=== PATIENT | female | born 1965 | race Caucasian/White ===

== ENCOUNTER 2023-04-10 09:55 | Inpatient (IN) | payer OTHER ==
[2023-04-10] MEDS ORDERED: KETOROLAC 15 MG/ML 1 ML VIAL IVP STA (10:30)
[2023-04-10] MEDS ORDERED: ONDANSETRON 4 MG/2 ML VIAL IVP STA (10:37)
[2023-04-10 11:04] LABS: Basophils % (A) 0 %; Eosinophils # (A) 0.1 k/uL (0-0.7); Eosinophils % (A) 1 %; HCT 45.2 % (34.0-46.0); HGB 15.4 gm/dL (11.4-16.0); Lymphocytes # (A) 1.9 k/uL (1.0-4.8); Lymphocytes % (A) 9 %; MCH 31.8 pg (25.0-35.0); MCHC 34.1 g/dL (31.0-37.0); MCV 93.4 fL (80.0-100.0); Mean Platelet Volume 7.1; Monocytes # (A) 1.2 k/uL (0-1.0); Monocytes % (A) 5 %; Neutrophils # (A) 18.6 k/uL (1.3-7.7); Neutrophils % (A) 85 %; Platelet Count 376 k/uL (150-450); RBC 4.83 m/uL (3.80-5.40); RDW 12.7 % (11.5-15.5); WBC 21.9 k/uL (3.8-10.6)
[2023-04-10 11:12] LABS: Appearance,Urine Cloudy (Clear); Bacteria,Urine Rare /hpf; Bilirubin,Urine Negative (Negative); Blood,Urine Moderate (Negative); Color,Urine Light Red; Glucose,Urine (UA) Trace (Negative); Ketones,Urine Trace (Negative); Leukocyte Esterase,Urine Small (Negative); Mucus,Urine Many /hpf; Nitrite,Urine Negative (Negative); PH, Urine 5.5 (5.0-8.0); Protein,Urine 2+ (Negative); RBC,Urine 5 /hpf (0-5); Specific Gravity,Urine 1.026 (1.001-1.035); Squamous Epithelial Cell,Urine 14 /hpf (0-4); Urobilinogen,Urine <2.0 mg/dL (<2.0); WBC,Urine 4 /hpf (0-5)
[2023-04-10 11:26] LABS: ALT 15 U/L (4-34); AST 21 U/L (14-36); African American GFR (CKD) >90 (>60 ml/min/1.73 sqM); Albumin 4.5 g/dL (3.5-5.0); Alkaline Phosphatase 104 U/L (38-126); Amylase 52 U/L (30-110); Anion Gap 10 mmol/L; Blood Urea Nitrogen 15 mg/dL (7-17); Carbon Dioxide 30 mmol/L (22-30); Chloride 98 mmol/L (98-107); Glucose 130 mg/dL (74-99); Lipase 88 U/L (23-300); Non-African American GFR(CKD) 79 (>60 ml/min/1.73 sqM); Potassium 3.9 mmol/L (3.5-5.1); Sodium 138 mmol/L (137-145); Total Protein 7.4 g/dL (6.3-8.2)
--- NOTE | 2023-04-10 11:26 | ED ---
Abdominal Pain HPI - General Chief Complaint: Abdominal Pain Stated Complaint: back pain Time Seen by Provider: 04/10/23 10:20 Source: patient Mode of arrival: ambulatory Limitations: no limitations - History of Present Illness Initial Comments: 57-year-old female presenting to the ED with a chief complaint of abdominal/back pain. Patient states for the past 2 days, has had right flank/right sided abdominal pain radiating to her chest. Pain is constant and waxing and waning in severity. States pain is sharp in nature. Associated nausea with 2 episodes of nonbloody nonbilious emesis this morning. Since onset, states pain is worsened in severity. States that she took one dose of Flexeril which helped improve the pain. Also notes lying flat helps improve the pain. No associated exacerbating factors. No changes in urination with no dysuria, hematuria, urgency, frequency. No changes in bowel movements. Denies chest pain or shortness of breath. No other complaints. - Related Data Home Medications Medication Instructions Recorded Confirmed Albuterol Sulfate [Albuterol 1 - 2 puff PO RT-Q6H PRN 04/10/23 04/10/23 Sulfate Hfa] Cetirizine HCl [Zyrtec] 10 mg PO DAILY 04/10/23 04/10/23 Cholecalciferol [Vitamin D3 (125 125 mcg PO DAILY 04/10/23 04/10/23 Mcg = 5000 Iu)] DULoxetine HCL [Cymbalta] 30 mg PO DAILY 04/10/23 04/10/23 DULoxetine HCL [Cymbalta] 60 mg PO DAILY 04/10/23 04/10/23 Ferrous Sulfate [Iron] 325 mg PO DAILY 04/10/23 04/10/23 Fluticasone Nasal [place] [Flonase 2 spray EA NOSTRIL DAILY 04/10/23 04/10/23 Nasal [place]] Levothyroxine Sodium [Synthroid] 25 mcg PO DAILY 04/10/23 04/10/23 Mometasone/Formoterol [Dulera 100 2 puff INHALATION RT-BID 04/10/23 04/10/23 Mcg-5 Mcg Inhaler] Allergies Allergy/AdvReac Type Severity Reaction Status Date / Time clarithromycin [From Biaxin] Allergy Rash/Hives Verified 04/10/23 13:48 Penicillins Allergy Rash/Hives Verified 04/10/23 13:48 Review of Systems ROS Statement: Those systems with pertinent positive or pertinent negative responses have been documented in the HPI. ROS Other: All systems not noted in ROS Statement are negative. Past Medical History Past Medical History: Asthma, Coronary Artery Disease (CAD), COPD Additional Past Medical History / Comment(s): Fibromyaglia History of Any Multi-Drug Resistant Organisms: None Reported Past Surgical History: Appendectomy, Hysterectomy Past Psychological History: No Psychological Hx Reported Smoking Status: Current every day smoker Past Alcohol Use History: None Reported Past Drug Use History: None Reported General Exam Limitations: no limitations General appearance: alert, in no apparent distress Respiratory exam: Present: normal lung sounds bilaterally Cardiovascular Exam: Present: regular rate GI/Abdominal exam: Present: soft (Tenderness to palpation of the upper abdomen diffusely however worse in the left upper quadrant with guarding. Bilateral CVA tenderness to percussion.) Extremities exam: Present: normal inspection Neurological exam: Present: alert, oriented X3 Skin exam: Present: warm, dry Course Vital Signs 04/10/23 10:09 Temperature 98.6 F Pulse Rate 106 H Respiratory 20 Rate Blood Pressure 172/97 O2 Sat by Pulse 99 Oximetry Medical Decision Making - Medical Decision Making Was pt. sent in by a medical professional or institution (, PA, PARTS PROFESSIONAL, urgent care, hospital, or care home...) When possible be specific @ -No Did you speak to anyone other than the patient for history (EMS, parent, family, police, friend...)? What history was obtained from this source @ -No Did you review nursing and triage notes (agree or disagree)? Why? @ -I reviewed and agree with nursing and triage notes Were old charts reviewed (outside hosp., previous admission, EMS record, old EKG, old radiological studies, urgent care reports/EKG's, care home records)? Report findings @ -No old charts were reviewed Differential Diagnosis (chest pain, altered mental status, abdominal pain women, abdominal pain men, vaginal bleeding, weakness, fever, dyspnea, syncope, headache, dizziness, GI bleed, back pain, seizure, CVA, palpatations, mental health, musculoskeletal)? @ -Differential Abdominal Pain Women: Appendicitis, Cholecystitis, diverticulosis, ischemic bowel, pancreatitis, hepatitis, UTI, gastroenteritis, AAA, incarcerated hernia, bowel obstruction, constipation, inflammatory bowel, hepatitis, peptic ulcer disease, splenic infarction, perforated viscus, vulvitis, ovarian torsion, PID, kidney stone, placenta abruption, this is not meant to be an all-inclusive list EKG interpreted by me (3pts min.). @ -As above X-rays interpreted by me (1pt min.). @ -None done CT interpreted by me (1pt min.). @ -CT abdomen and pelvis showed some eccentric calcification within the lumen of the fusiform prominence of abdominal aorta with prominence measuring 3 cm suggesting underlying dissection. CTA of the thorax/abdomen/pelvis showed ascending thoracic aortic aneurysm measuring 4 cm. Descending thoracic aorta and abdominal aorta with apparent thrombus along the wall without obstruction. No acute dissection. U/S interpreted by me (1pt. min.). @ -None done What testing was considered but not performed or refused? (CT, X-rays, U/S, labs)? Why? @ -None What meds were considered but not given or refused? Why? @ -None Did you discuss the management of the patient with other professionals (professionals i.e. , PA, PARTS PROFESSIONAL, lab, RT, psych nurse, social worker delinquency prevention, business lawyer, teacher, learning and development officer, caseworker protective services)? Give summary @ -Case discussed with radiology who noted he findings above. The CT abdomen/pelvis and therefore recommended CTA. Us findings of descending thoracic aorta with apparent thrombus along the wall without obstruction with Dr. Walker of vascular who related that these findings are likely chronic in nature. In regards to ascending aorta aneurysm advised at this time vascular team here unable to assist due to surgeons performing it being currently out of town and Dr. Walker states that he does not repair these himself. Florentino FELIPE of cardiothoracic contacted and related findings. Advised by cardiothoracic that these findings appear chronic in nature. Advised repeat CT in 3 months. Was smoking cessation discussed for >3mins.? @ -No Was critical care preformed (if so, how long)? @ -No Were there social determinants of health that impacted care today? How? (Homelessness, low income, unemployed, alcoholism, drug addiction, transportation, low edu. Level, literacy, decrease access to med. care, senior care, rehab)? @ -No Was there de-escalation of care discussed even if they declined (Discuss DNR or withdrawal of care, Hospice)? DNR status @ -No What co-morbidities impacted this encounter? (DM, HTN, Smoking, COPD, CAD, Cancer, CVA, ARF, Chemo, Hep., AIDS, mental health diagnosis, sleep apnea, morbid obesity)? @ -None Was patient admitted / discharged? Hospital course, mention meds given and route, prescriptions, significant lab abnormalities, going to OR and other pertinent info. @ -Admission. Imaging findings significant for abdominal aneurysm and thoracic aneurysm. Upon consultation with vascular and cardiothoracic, both advised that these findings appear chronic in nature at this time are nonsurgical. Patient is still having back/abdominal pain radiating to the chest. EKG here shows a normal sinus rhythm without acute ST-T wave changes and initial troponin unremarkable. Patient will be admitted to observation with consult to cardiology. Undiagnosed new problem with uncertain prognosis? @ -No Drug Therapy requiring intensive monitoring for toxicity (Heparin, Nitro, Insulin, Cardizem)? @ -No Were any procedures done? @ -No Diagnosis/symptom? @ -Abdominal aneurysm, thoracic aneurysm, abdominal/chest pain. Acute, or Chronic, or Acute on Chronic? @ -Chronic, chronic, acute Uncomplicated (without systemic symptoms) or Complicated (systemic symptoms)? @ -Uncomplicated Side effects of treatment? @ -No Exacerbation, Progression, or Severe Exacerbation? @ -No Poses a threat to life or bodily function? How? (Chest pain, [place], [place], pneumonia, PE, COPD, DKA, ARF, appy, cholecystitis, CVA, Diverticulitis, Homicidal, Suicidal, threat to staff... and all critical care pts) @ -Yes, Chest pain - Lab Data Result diagrams: 04/10/23 10:50 04/10/23 10:50 Lab Results 04/10/23 04/10/23 04/10/23 Range/Units 10:50 10:50 10:50 WBC 21.9 H (3.8-10.6) k/uL RBC 4.83 (3.80-5.40) m/uL Hgb 15.4 (11.4-16.0) gm/dL Hct 45.2 (34.0-46.0) % MCV 93.4 (80.0-100.0) fL MCH 31.8 (25.0-35.0) pg MCHC 34.1 (31.0-37.0) g/dL RDW 12.7 (11.5-15.5) % Plt Count 376 (150-450) k/uL MPV 7.1 Neutrophils % 85 % Lymphocytes % 9 % Monocytes % 5 % Eosinophils % 1 % Basophils % 0 % Neutrophils # 18.6 H (1.3-7.7) k/uL Lymphocytes # 1.9 (1.0-4.8) k/uL Monocytes # 1.2 H (0-1.0) k/uL Eosinophils # 0.1 (0-0.7) k/uL Basophils # 0.0 (0-0.2) k/uL Sodium 138 (137-145) mmol/L Potassium 3.9 (3.5-5.1) mmol/L Chloride 98 (98-107) mmol/L Carbon Dioxide 30 (22-30) mmol/L Anion Gap 10 mmol/L BUN 15 (7-17) mg/dL Creatinine 0.82 (0.52-1.04) mg/dL Est GFR (CKD-EPI)AfAm >90 (>60 ml/min/1.73 sqM) Est GFR (CKD-EPI)NonAf 79 (>60 ml/min/1.73 sqM) Glucose 130 H (74-99) mg/dL Calcium 10.0 (8.4-10.2) mg/dL Total Bilirubin 1.0 (0.2-1.3) mg/dL AST 21 (14-36) U/L ALT 15 (4-34) U/L Alkaline Phosphatase 104 (38-126) U/L Troponin I (0.000-0.034) ng/mL Total Protein 7.4 (6.3-8.2) g/dL Albumin 4.5 (3.5-5.0) g/dL Amylase 52 (30-110) U/L Lipase 88 (23-300) U/L Urine Color Light Red Urine Appearance Cloudy H (Clear) Urine pH 5.5 (5.0-8.0) Ur Specific [place] 1.026 (1.001-1.035) Urine Protein 2+ H (Negative) Urine Glucose (UA) Trace H (Negative) Urine Ketones Trace H (Negative) Urine Blood Moderate H (Negative) Urine Nitrite Negative (Negative) Urine Bilirubin Negative (Negative) Urine Urobilinogen <2.0 (<2.0) mg/dL Ur Leukocyte Esterase Small H (Negative) Urine RBC 5 (0-5) /hpf Urine WBC 4 (0-5) /hpf Ur Squamous Epith Cells 14 H (0-4) /hpf Urine Bacteria Rare H (None) /hpf Urine Mucus Many H (None) /hpf 04/10/23 Range/Units 10:50 WBC (3.8-10.6) k/uL RBC (3.80-5.40) m/uL Hgb (11.4-16.0) gm/dL Hct (34.0-46.0) % MCV (80.0-100.0) fL MCH (25.0-35.0) pg MCHC (31.0-37.0) g/dL RDW (11.5-15.5) % Plt Count (150-450) k/uL MPV Neutrophils % % Lymphocytes % % Monocytes % % Eosinophils % % Basophils % % Neutrophils # (1.3-7.7) k/uL Lymphocytes # (1.0-4.8) k/uL Monocytes # (0-1.0) k/uL Eosinophils # (0-0.7) k/uL Basophils # (0-0.2) k/uL Sodium (137-145) mmol/L Potassium (3.5-5.1) mmol/L Chloride (98-107) mmol/L Carbon Dioxide (22-30) mmol/L Anion Gap mmol/L BUN (7-17) mg/dL Creatinine (0.52-1.04) mg/dL Est GFR (CKD-EPI)AfAm (>60 ml/min/1.73 sqM) Est GFR (CKD-EPI)NonAf (>60 ml/min/1.73 sqM) Glucose (74-99) mg/dL Calcium (8.4-10.2) mg/dL Total Bilirubin (0.2-1.3) mg/dL AST (14-36) U/L ALT (4-34) U/L Alkaline Phosphatase (38-126) U/L Troponin I <0.012 (0.000-0.034) ng/mL Total Protein (6.3-8.2) g/dL Albumin (3.5-5.0) g/dL Amylase (30-110) U/L Lipase (23-300) U/L Urine Color Urine Appearance (Clear) Urine pH (5.0-8.0) Ur Specific [place] (1.001-1.035) Urine Protein (Negative) Urine Glucose (UA) (Negative) Urine Ketones (Negative) Urine Blood (Negative) Urine Nitrite (Negative) Urine Bilirubin (Negative) Urine Urobilinogen (<2.0) mg/dL Ur Leukocyte Esterase (Negative) Urine RBC (0-5) /hpf Urine WBC (0-5) /hpf Ur Squamous Epith Cells (0-4) /hpf Urine Bacteria (None) /hpf Urine Mucus (None) /hpf - EKG Data EKG Comments: EKG shows a sinus rhythm at [address] or T-wave changes. NH 126, QRS 90, QT/QTc 351/402. Disposition Clinical Impression: Abdominal aortic aneurysm, Thoracic aortic aneurysm, Abdominal pain, Chest pain Disposition: ADMITTED IP TO THIS [facility] Condition: Good Referrals: None,Stated [Primary Care Provider] - 1-2 days Decision Time: 17:42
--- NOTE | 2023-04-10 12:42 | CT ---
EXAMINATION TYPE: CT abdomen pelvis wo con DATE OF EXAM: 04/10/2023 COMPARISON: None INDICATION: Diffuse abdominal pain and Rt flank pain DLP: 416.3 mGycm, Automated exposure control for dose reduction was used. CONTRAST: 0 mL of Isovue 300. Study performed without Oral Contrast TECHNIQUE: Axial images were obtained from above the diaphragm to the pubic rami in the axial plane a t 5 mm thick sections. Reconstructed images are reviewed on the computer in the coronal plane. FINDINGS: Limited CT sections are obtained the lung bases. The lung bases are clear. CT ABDOMEN: Liver: Normal Spleen: Normal Pancreas: Normal Adrenal glands: The adrenal glands are normal. Gallbladder: Normal Kidneys: No masses are evident. No hydronephrosis is present. No cysts are present. Delayed images were obtained through the kidneys, which remain unremarkable. Aorta: Vascular calcification is within the aorta. Mid abdominal aorta measures 3.0 cm. Some calcifi cations near the midline suggesting underlying dissection at this level. Report was called as discuss ed the emergency room physician by Dr. Jackson from the time of interpretation. Inferior vena cava: Normal. CT PELVIS: Loops of bowel within the abdomen and pelvis are normal. This study is without oral contrast limi ting bowel evaluation. Appendix: Not identified. No dilated tubular structure or inflammatory changes are evident. Urinary bladder: Normal. Genitourinary structures: Osseous structures: No suspicious lytic or sclerotic lesions. Facet changes are normal. IMPRESSIONS: 1. There is some eccentric calcification within the lumen of the fusiform prominence of abdominal ao rta suggesting underlying dissection. Fusiform prominence measures 3.0 cm in the mid abdominal aorta. Correlate with the patient's symptoms. Case discussed with the emergency room. 2. No renal or ureteral stones evident.
[2023-04-10] MEDS ORDERED: MORPHINE SULFATE 4 MG/ML SYRINGE IVP STA (13:13)
--- NOTE | 2023-04-10 15:12 | CT ---
EXAMINATION TYPE: CT angio thor/abd pel aorta DATE OF EXAM: 04/10/2023 COMPARISON: None HISTORY: Back pain CT DLP: 983.1 mGycm, Automated exposure control for dose reduction was used. CONTRAST: Performed injected with 100 ml mL of Isovue 370. TECHNIQUE: Axial images were obtained at 5 mm thick sections. Reconstructed images are reviewed on [employer] computer in the coronal plane. FINDINGS: Portion of the thyroid visualized is normal. Emphysematous changes are present bilaterally. No enlarged mediastinal or hilar adenopathy is evident. The ascending aorta diameter at the level o f the main pulmonary artery is 4.0 cm. The main pulmonary artery diameter at the bifurcation is 2.[address] abdomen: Attention is paid to the aorta. Celiac axis and superior mesenteric artery appear normal. The renal arteries appear normal. There is some calcification near the origins. The flow lumen is patent. The calcification in the mid abdominal aorta is shifted towards the center. An acute dissection is not identified. This outer area could be related to thrombus or thrombosed di ssection. This terminates above the bifurcation. Common iliac internal and external iliac vessels are patent. Common femoral arteries are patent. Abdomen was previously evaluated and CT abdomen study. No suspicious interval change is evident. IMPRESSIONS: 1. Ascending thoracic aortic aneurysm at 4.0 cm. 2. Descending thoracic aorta and abdominal aorta with apparent thrombus along the wall without obstru ction. No acute dissection identified. Mid abdominal dissection, if present, is thrombosed. 3. Report was called and case discussed with the emergency room at the time of interpretation.
[2023-04-10] MEDS ORDERED: ACETAMINOPHEN TAB 325 MG TAB PO PRN (17:42)
[2023-04-10] MEDS ORDERED: NALOXONE 0.4 MG/ML 1 ML VIAL IV PRN (17:42)
[2023-04-10] MEDS ORDERED: ONDANSETRON 4 MG/2 ML VIAL IVP PRN (17:42)
--- NOTE | 2023-04-10 18:28 | P.GSCN ---
History of Present Illness Consult date: 04/10/23 Reason for Consult: Abdominal pain, incidental finding on CT angiogram thoracic/abdominal aorta, ascending aortic aneurysm at 4.0 cm, descending thoracic aorta and abdominal aorta with apparent thrombus along the wall without obstruction and no acute dissection identified. 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 She has a past medical history significant for a bicuspid aortic valve, osteoporosis, chronic constipation, depression, anxiety, arthritis, asthma, COPD, fibromyalgia, hypothyroid, hypertension, hyperlipidemia, hyperglycemia, migraine headaches, chronic ongoing tobacco dependence and daily marijuana use smoking about 6-7 joints per day. She presented to the emergency department here at [facility] today with complaints of right sided flank and abdominal pain radiating to her chest which was constant in nature and waxing and waning in severity. The patient also reports that her pain was associated with nausea and 2 episodes of vomiting which she denies any hematemesis. The patient reports that the pain started this morning but has been present off and on for 2 days and has worsened in severity. She reports due to her history of severe constipation she presented to the emergency department. She denies any recent fever, shortness of breath, lightheadedness, visual disturbances, headache, burning urination or changes in urine habits, diarrhea, palpitations, presyncope or syncope. Initial laboratory results showed a WBC count of 21.9, hemoglobin 15.4, hematocrit 45.2, platelets 376, sodium 138, potassium 3.9, chloride 98, CO2 30, BUN 15, creatinine 0.82, glucose 130, AST 21, ALT 15, troponin less than 0.012, amylase 52 and lipase 88. Her urinalysis did show cloudy in appearance, 2+ protein trace glucose, ketones trace, moderate blood, small leukocyte Estrace, and rare rare bacteria. Initial vital signs showed a temperature of 98.6F, heart rate 106, BP 172/97 with a map of 122 and oxygen saturation is 99% on room air. Her current blood pressure is showing 141/86 with a map of 104 heart rate 69 and oxygen saturation is 97% on room air. Due to the patient's presenting symptoms with complaints of abdominal discomfort a computed tomography scan of her abdomen and pelvis without contrast was completed and showed some eccentric calcification within the lumen of the fusiform prominence of abdominal aorta suggesting underlying dissection, fusiform prominence measuring 3.0 cm in the mid abdominal aorta and no renal or ureteral stones to be evident. Due to the findings on the computed tomography scan of the abdomen for further evaluation a CT angiogram thoracic/abdominal and pelvis aorta was completed which demonstrated an ascending thoracic aorta aneurysm at 4.0 cm, descending thoracic aorta and abdominal aorta with apparent thrombus along the wall without obstruction, no acute dissection identified, mid abdominal dissection, if present, is thrombosed, per the computed tomography scan report. Initial EKG showed normal sinus rhythm with a heart rate of 93 BPM. Subsequently due to the findings on the CT angiogram thoracic/abdominal/pelvic aorta a consult was placed to Dr. Bennie Hou from cardiothoracic surgery for further evaluation and treatment recommendations. Review of Systems A 14 point review of systems was negative except as mentioned in the HPI. Past Medical History Past Medical History: Asthma, Coronary Artery Disease (CAD), COPD, Fibromyalgia, Hyperlipidemia, Hypertension, Thyroid Disorder Additional Past Medical History / Comment(s): Osteoporosis, Fibromyaglia, according to the patient she has been diagnosed with a bicuspid aortic valve History of Any Multi-Drug Resistant Organisms: None Reported Past Surgical History: Appendectomy, Hysterectomy Additional Past Surgical History / Comment(s): Cyst removed recently from her back and neck Past Anesthesia/Blood Transfusion Reactions: No Reported Reaction Past Psychological History: Anxiety, Depression Smoking Status: Current every day smoker Past Alcohol Use History: None Reported Past Drug Use History: Marijuana (Daily marijuana use smokes around 6-7 joints per day) - Past Family History Mother Family Medical History: Cancer, CVA/TIA Father Family Medical History: Hypertension, Myocardial Infarction ([place]) Additional Family Medical History / Comment(s): at age 46 from myocardial infarction Medications and Allergies Home Medications Medication Instructions Recorded Confirmed Type Albuterol Sulfate [Albuterol 1 - 2 puff PO RT-Q6H PRN 04/10/23 04/10/23 History Sulfate Hfa] Cetirizine HCl [Zyrtec] 10 mg PO DAILY 04/10/23 04/10/23 History Cholecalciferol [Vitamin D3 (125 125 mcg PO DAILY 04/10/23 04/10/23 History Mcg = 5000 Iu)] DULoxetine HCL [Cymbalta] 30 mg PO DAILY 04/10/23 04/10/23 History DULoxetine HCL [Cymbalta] 60 mg PO DAILY 04/10/23 04/10/23 History Ferrous Sulfate [Iron] 325 mg PO DAILY 04/10/23 04/10/23 History Fluticasone Nasal [place] [Flonase 2 spray EA NOSTRIL DAILY 04/10/23 04/10/23 History Nasal [place]] Levothyroxine Sodium [Synthroid] 25 mcg PO DAILY 04/10/23 04/10/23 History Mometasone/Formoterol [Dulera 100 2 puff INHALATION RT-BID 04/10/23 04/10/23 History Mcg-5 Mcg Inhaler] Allergies Allergy/AdvReac Type Severity Reaction Status Date / Time clarithromycin [From Biaxin] Allergy Rash/Hives Verified 04/10/23 13:48 Penicillins Allergy Rash/Hives Verified 04/10/23 13:48 Surgical - Exam Vital Signs Temp Pulse Resp BP Pulse Ox 98.6 F 106 H 20 172/97 99 04/10/23 10:09 04/10/23 10:09 04/10/23 10:09 04/10/23 10:09 04/10/23 10:09 - General well developed, well nourished, no distress, moderate pain (To abdomen and right flank), chronically ill, obese - Eyes PERRL, normal ocular movement, no pale, no icteric - ENT normal pinna, normal nares, normal mucosa, no hearing loss, no congestion, poor residential - Neck Neck is supple, no lymphadenopathy. no masses, trachea midline, no venous distension carotid bruit: left - Respiratory Lungs sounds essentially clear throughout. Respirations are symmetrical and nonlabored. Oxygen saturation is 97% on room air. - Cardiovascular Regular rhythm and rate. S1 and S2 present, negative for S3, gallop or murmur. No peripheral edema. - Abdomen Abdomen is soft, nondistended, some tenderness with palpation to her right lower quadrant abdomen and right flank. Bowel sounds present in all 4 abdominal quadrants. No guarding or rigidity. - Genitourinary Deferred - Rectum Deferred - Integumentary Skin is warm and dry. No clubbing or cyanosis is present. no rash, no growths, no abnormal pigmentation - Neurologic No focal deficits. - Musculoskeletal Moves all 4 extremities with equal strength bilaterally. - Psychiatric oriented to time, oriented to person, oriented to place, speech is normal, memory intact Results - Labs 04/10/23 10:50 04/10/23 10:50 Abnormal Lab Results - Last 24 Hours (Table) 04/10/23 04/10/23 04/10/23 Range/Units 10:50 10:50 10:50 WBC 21.9 H (3.8-10.6) k/uL Neutrophils # 18.6 H (1.3-7.7) k/uL Monocytes # 1.2 H (0-1.0) k/uL Glucose 130 H (74-99) mg/dL Urine Appearance Cloudy H (Clear) Urine Protein 2+ H (Negative) Urine Glucose (UA) Trace H (Negative) Urine Ketones Trace H (Negative) Urine Blood Moderate H (Negative) Ur Leukocyte Esterase Small H (Negative) Ur Squamous Epith Cells 14 H (0-4) /hpf Urine Bacteria Rare H (None) /hpf Urine Mucus Many H (None) /hpf Diabetes panel 04/10/23 Range/Units 10:50 Sodium 138 (137-145) mmol/L Potassium 3.9 (3.5-5.1) mmol/L Chloride 98 (98-107) mmol/L Carbon Dioxide 30 (22-30) mmol/L BUN 15 (7-17) mg/dL Creatinine 0.82 (0.52-1.04) mg/dL Glucose 130 H (74-99) mg/dL Calcium 10.0 (8.4-10.2) mg/dL AST 21 (14-36) U/L ALT 15 (4-34) U/L Alkaline Phosphatase 104 (38-126) U/L Total Protein 7.4 (6.3-8.2) g/dL Albumin 4.5 (3.5-5.0) g/dL Calcium panel 04/10/23 Range/Units 10:50 Calcium 10.0 (8.4-10.2) mg/dL Albumin 4.5 (3.5-5.0) g/dL Pituitary panel 04/10/23 Range/Units 10:50 Sodium 138 (137-145) mmol/L Potassium 3.9 (3.5-5.1) mmol/L Chloride 98 (98-107) mmol/L Carbon Dioxide 30 (22-30) mmol/L BUN 15 (7-17) mg/dL Creatinine 0.82 (0.52-1.04) mg/dL Glucose 130 H (74-99) mg/dL Calcium 10.0 (8.4-10.2) mg/dL Adrenal panel 04/10/23 Range/Units 10:50 Sodium 138 (137-145) mmol/L Potassium 3.9 (3.5-5.1) mmol/L Chloride 98 (98-107) mmol/L Carbon Dioxide 30 (22-30) mmol/L BUN 15 (7-17) mg/dL Creatinine 0.82 (0.52-1.04) mg/dL Glucose 130 H (74-99) mg/dL Calcium 10.0 (8.4-10.2) mg/dL Total Bilirubin 1.0 (0.2-1.3) mg/dL AST 21 (14-36) U/L ALT 15 (4-34) U/L Alkaline Phosphatase 104 (38-126) U/L Total Protein 7.4 (6.3-8.2) g/dL Albumin 4.5 (3.5-5.0) g/dL - Imaging CT scan - chest: report reviewed, image reviewed (Reviewed by Dr. Bennie Hou.) Assessment and Plan Assessment: Thoracic aortic aneurysm on CT scan of the chest measuring 4.0 cm, CT angio of the thoracic/abdomen and pelvis showed descending thoracic aorta and abdominal aorta with apparent thrombus along the wall without obstruction, no acute dissection History of bicuspid aortic valve History of hypertension History of hyperlipidemia Hypothyroidism Fibromyalgia Depression/anxiety COPD History of asthma History of bronchitis History of constipation Osteoporosis Chronic ongoing tobacco dependence Daily marijuana use smokes 6-7 joints per day Family history of early onset coronary artery disease with her dad passing away in his 40s from a myocardial infarction Plan: The patient was seen and examined at her bedside in the emergency department, with her son present at her bedside. Her chart and diagnostics were reviewed. Her films were reviewed by Dr. Bennie Hou from cardiothoracic surgery, her case was discussed in detail with Dr. Hou. No surgical intervention is warranted at this time, recommend strict blood pressure control and repeat CTA of the aorta in 3 months. Also discussed the importance of smoking cessation with the patient. Further recommendations on her abdominal aorta per vascular surgery. The patient reports she will follow-up with her family doctor in [place] and passed on the recommendations to her physician. We will start the patient on metoprolol tartrate 25 mg by mouth twice a day. Medical management and other comorbidities per primary care service. We will continue to follow the patient on an as-needed basis, feel free to call for further questions. Thank you for this consult. I have personally seen and examined the patient, performed the documentation and the assessment and plan as written. 30 minutes spent on the visit . Florentino WU
[2023-04-10] MEDS: SODIUM CHLORIDE 0.9% 1,000 ML IV SCH (18:36)
[2023-04-10] MEDS: HYDROmorphone 0.5 MG/0.5 ML SYRINGE IVP PRN (20:27)
[2023-04-10] MEDS: METOPROLOL TARTRATE 25 MG TAB PO SCH (20:27)
[2023-04-11] MEDS ORDERED: ALBUTEROL NEBULIZED 2.5 MG/3 ML INHALATION PRN (00:28)
--- NOTE | 2023-04-11 00:38 | P.HPIM ---
History of Present Illness H&P Date: 04/10/23 Chief Complaint: right flank pain 57 year old female with COPD she is coming in for sudden onset right flank pain , described as intense sharp right flank pain , radiating to the epigastric region and lower chest. with associated episode of vomitingX2 non bloody non bilious , no fever, no chills, no SOB, no changes in bowel habits, no GI bleeding, denies any trauma , falls, or bruising. denies any urinary changes. she describes pain as severe 8/10 and sharp in nature. while in the ED , further testing revealed concern regarding aortic dissection admits to tobacco smoking and marijuana multiple times a day , dneies any heavy alcohol review of systems Pertinent positives as noted in HPI. All other systems were reviewed and are negative on exam Constitutional: No acute distress, conversant, pleasant Eyes: Anicteric sclerae, moist conjunctiva, Pupils equal round reactive to light ENMT: NC/AT Oropharynx clear, no erythema, or exudates Neck: Supple, no masses, or JVD No carotid bruits No thyromegaly Lungs: Clear to auscultation Clear to percussion Normal respiratory effort, no accessory muscle use Cardiovascular: Heart regular in rate and rhythm, No murmurs, gallops, or rubs No peripheral edema Abdominal: Soft Nontender, no guarding, rebound or rigidity Abdomen moving with respiration Normoactive bowel sounds No hepatomegaly, No splenomegaly No palpable mass No abdominal wall hernia noted Skin: Normal temperature, tone, texture, turgor No induration No subcutaneous nodules No rash, lesions No ulcers Extremities: No digital cyanosis No clubbing Pedal pulses intact and symmetrical Radial pulses intact and symmetrical No calf tenderness Psychiatric: Alert and oriented to person, place and time Appropriate affect fair judgement Neuro Muscles Strength 5/5 in all 4 extremities Sensation to light touch grossly present throughout Cranial nerves II-XII grossly intact Lymphatics: no palpable cervical or supraclavicular lymph nodes Past Medical History Past Medical History: Asthma, Coronary Artery Disease (CAD), COPD, Fibromyalgia, Hyperlipidemia, Hypertension, Thyroid Disorder Additional Past Medical History / Comment(s): Osteoporosis, Fibromyaglia, according to the patient she has been diagnosed with a bicuspid aortic valve, History of Any Multi-Drug Resistant Organisms: None Reported Past Surgical History: Appendectomy, Hysterectomy Additional Past Surgical History / Comment(s): Cyst removed recently from her back and neck Past Anesthesia/Blood Transfusion Reactions: No Reported Reaction Past Psychological History: Anxiety, Depression Smoking Status: Current every day smoker Past Alcohol Use History: None Reported Past Drug Use History: Marijuana - Past Family History Mother Family Medical History: Cancer, CVA/TIA Father Family Medical History: Hypertension, Myocardial Infarction ([place]) Additional Family Medical History / Comment(s): at age 46 from myocardial infarction Medications and Allergies Home Medications Medication Instructions Recorded Confirmed Type Albuterol Sulfate [Albuterol 1 - 2 puff PO RT-Q6H PRN 04/10/23 04/10/23 History Sulfate Hfa] Cetirizine HCl [Zyrtec] 10 mg PO DAILY 04/10/23 04/10/23 History Cholecalciferol [Vitamin D3 (125 125 mcg PO DAILY 04/10/23 04/10/23 History Mcg = 5000 Iu)] DULoxetine HCL [Cymbalta] 30 mg PO DAILY 04/10/23 04/10/23 History DULoxetine HCL [Cymbalta] 60 mg PO DAILY 04/10/23 04/10/23 History Ferrous Sulfate [Iron] 325 mg PO DAILY 04/10/23 04/10/23 History Fluticasone Nasal [place] [Flonase 2 spray EA NOSTRIL DAILY 04/10/23 04/10/23 History Nasal [place]] Levothyroxine Sodium [Synthroid] 25 mcg PO DAILY 04/10/23 04/10/23 History Mometasone/Formoterol [Dulera 100 2 puff INHALATION RT-BID 04/10/23 04/10/23 History Mcg-5 Mcg Inhaler] Allergies Allergy/AdvReac Type Severity Reaction Status Date / Time clarithromycin [From Biaxin] Allergy Rash/Hives Verified 04/10/23 13:48 Penicillins Allergy Rash/Hives Verified 04/10/23 13:48 Physical Exam Vitals: Vital Signs Temp Pulse Pulse Resp BP BP Pulse Ox 04/10/23 22:04 98.7 F 99 15 135/70 94 L 04/10/23 18:00 98.7 F 69 16 141/86 97 04/10/23 10:09 98.6 F 106 H 20 172/97 99 Intake and Output 04/10/23 04/10/23 04/11/23 14:59 22:59 06:59 Other: # Voids 0 Weight 74.843 kg 74.843 kg Results CBC & Chem 7: 04/10/23 10:50 04/10/23 10:50 Labs: Abnormal Lab Results - Last 24 Hours (Table) 04/10/23 04/10/23 04/10/23 Range/Units 10:50 10:50 10:50 WBC 21.9 H (3.8-10.6) k/uL Neutrophils # 18.6 H (1.3-7.7) k/uL Monocytes # 1.2 H (0-1.0) k/uL Glucose 130 H (74-99) mg/dL Urine Appearance Cloudy H (Clear) Urine Protein 2+ H (Negative) Urine Glucose (UA) Trace H (Negative) Urine Ketones Trace H (Negative) Urine Blood Moderate H (Negative) Ur Leukocyte Esterase Small H (Negative) Ur Squamous Epith Cells 14 H (0-4) /hpf Urine Bacteria Rare H (None) /hpf Urine Mucus Many H (None) /hpf Assessment and Plan Assessment: 57 year old female with copd and heavy smoking , coming in for right flank pain , imaging revealed ascending thoracic aortic aneurysm, I discussed the case with ED doc and I accepted the admission for cardiology and cardiothoracic evaluation Ascending Thoracic aortic aneurysm at 4 cm CTA showing , Descending thoracic aorta and abd aorta with apparent thrombus along the wall without obstruction , no acute dissection , possibly thrombosed mid abdominal dissection Cardiothoracic evaluation , no plans for immediate intervention , suggesting OP follow up with repeat imaging in 3 months pain control with opiates cardiology evaluation COPD compensated resume inhalers hypertension on metoprolol 25 mg po bid hypothyroid on levothyroxine blood work showing negative trops imaging no evidence of kidney stones, or liver pathology WBC 21.9 no identified focus of infection BUN 15, cr 0.8 Miranda 138, K 3.9 unremarkable UA sample was not a clean catch with high seq cell epith full code DVT PPX heparin sc tid
[2023-04-11] MEDS: HYDROmorphone 0.5 MG/0.5 ML SYRINGE IVP PRN ×2 (02:31→11:30)
[2023-04-11] MEDS: LEVOTHYROXINE 25 MCG TAB PO SCH (05:16)
[2023-04-11] MEDS: SODIUM CHLORIDE 0.9% 1,000 ML IV SCH ×2 (05:17→20:25)
[2023-04-11] MEDS: HYDROmorphone 1 MG/ML 1 ML SYRINGE IVP PRN (05:20)
[2023-04-11] MEDS: DULoxetine HCL 30 MG CAPSULE.DR PO SCH (08:05)
[2023-04-11] MEDS: LORATADINE 10 MG TAB PO SCH (08:05)
[2023-04-11] MEDS: DULoxetine HCL 60 MG CAPSULE.DR PO SCH (08:05)
[2023-04-11] MEDS ORDERED: PANTOPRAZOLE 40 MG TABLET PO SCH (09:00)
[2023-04-11] MEDS: SYMBICORT 80-4.5 MCG INHALER INHALATION SCH ×2 (09:17→20:21)
[2023-04-11] MEDS: METOPROLOL TARTRATE 25 MG TAB PO SCH ×2 (09:23→20:26)
[2023-04-11] MEDS: ASPIRIN 81 MG PO SCH (09:23)
--- NOTE | 2023-04-11 10:46 | P.CRDCN ---
History of Present Illness Consult date: 04/11/23 Reason for Consult (text): Abdominal pain and chest pain History of present illness: History of present illness: This is a 57-year-old female with no previous cardiac history. She does have a past medical history of hypothyroidism, active tobacco use and dependence. Patient lives in [place] and is visiting her son. We have been asked to evaluate the patient for abdominal pain and chest pain. She presented to the emergency center due to abdominal pain and vomiting. There was concern for aortic aneurysm and patient has been seen by cardiothoracic surgery with recommendations for repeat CTA in 3 months, blood pressure control smoking ce ssation and started patient on Lopressor. Patient continues to have significant abdominal pain with tenderness. EKG sinus rhythm with no acute ST changes CT angiogram of the aorta revealed a ascending thoracic aortic aneurysm of 4 cm. Descending thoracic aorta and abdominal aorta with apparent thrombus along the wall without obstruction. No acute dissection. Mild abdominal dissection if present is thrombosed. WBC 21.9, hemoglobin 15.4. Electrolytes and renal function normal. Blood sugar 130. Troponin negative 3. Liver function tests are normal. Home cardiac medications: Patient is on levothyroxine 25 g daily Review Of Systems: At the time of my evaluation: Constitutional: No fever, no chills. No weakness, fatigue or lethargy. EENT: No headache. No dizziness. Lungs: No shortness of breath, cough, no sputum production. No wheezing. Cardiovascular: No chest pain, no lower extremity edema. No palpitations. No paroxysmal nocturnal dyspnea. No orthopnea. No lightheadedness or dizziness. No syncopal episodes. Abdominal: + abdominal pain. No nausea, vomiting. No diarrhea. No constipation. No bloody or tarry stools. Musculoskeletal: No myalgias. No muscle weakness, no frequent falls. Neurologic: No aphasia. No facial droop. No change in mentation. Physical examination: Gen: This is a a 57 year old female resting in bed appears to be in no acute distress. VS: reviewed. Blood pressure 117/68, heart rate 85, afebrile, pulse ox 95% on room air HEENT: Head is atraumatic, normocephalic. Pupils equal, round. Sclerae is anicteric. NECK: Supple. No JVD. . LUNGS: Clear to auscultation. No wheezes or rhonchi. No intercostal retractions. HEART: Regular rate and rhythm. No murmur. ABDOMEN: Soft significant tenderness to the epigastric area EXTREMITIES: No pedal edema. No calf tenderness. NEUROLOGICAL: Patient is awake, alert and oriented x3. Assessment: Atypical chest pain, acute coronary syndrome ruled out Hypertension Abdominal pain possibly related to GERD Ascending thoracic aortic aneurysm, incidental finding Thrombus in the abdominal aorta, incidental finding Hypothyroidism Active tobacco use and dependence Plan: Continue Lopressor Add atorvastatin 40 mg daily, aspirin 81 mg daily and omeprazole Obtain lipid panel Obtain 2-D echocardiogram and Doppler study to assess cardiac structure and function If echocardiogram is unremarkable, patient is cleared from cardiology for discharge Thank you kindly for this consultation. Nurse practitioner note has been reviewed, I agree with documented findings and plan of care. Patient was seen and examined. Past Medical History Past Medical History: Asthma, Coronary Artery Disease (CAD), COPD, Fibromyalgia, Hyperlipidemia, Hypertension, Thyroid Disorder Additional Past Medical History / Comment(s): Osteoporosis, Fibromyaglia, according to the patient she has been diagnosed with a bicuspid aortic valve, History of Any Multi-Drug Resistant Organisms: None Reported Past Surgical History: Appendectomy, Hysterectomy Additional Past Surgical History / Comment(s): Cyst removed recently from her back and neck Past Anesthesia/Blood Transfusion Reactions: No Reported Reaction Past Psychological History: Anxiety, Depression Smoking Status: Current every day smoker Past Alcohol Use History: None Reported Past Drug Use History: Marijuana - Past Family History Mother Family Medical History: Cancer, CVA/TIA Father Family Medical History: Hypertension, Myocardial Infarction ([place]) Additional Family Medical History / Comment(s): at age 46 from myocardial infarction Medications and Allergies Home Medications Medication Instructions Recorded Confirmed Type Albuterol Sulfate [Albuterol 1 - 2 puff PO RT-Q6H PRN 04/10/23 04/10/23 History Sulfate Hfa] Cetirizine HCl [Zyrtec] 10 mg PO DAILY 04/10/23 04/10/23 History Cholecalciferol [Vitamin D3 (125 125 mcg PO DAILY 04/10/23 04/10/23 History Mcg = 5000 Iu)] DULoxetine HCL [Cymbalta] 30 mg PO DAILY 04/10/23 04/10/23 History DULoxetine HCL [Cymbalta] 60 mg PO DAILY 04/10/23 04/10/23 History Ferrous Sulfate [Iron] 325 mg PO DAILY 04/10/23 04/10/23 History Fluticasone Nasal [place] [Flonase 2 spray EA NOSTRIL DAILY 04/10/23 04/10/23 History Nasal [place]] Levothyroxine Sodium [Synthroid] 25 mcg PO DAILY 04/10/23 04/10/23 History Mometasone/Formoterol [Dulera 100 2 puff INHALATION RT-BID 04/10/23 04/10/23 History Mcg-5 Mcg Inhaler] Allergies Allergy/AdvReac Type Severity Reaction Status Date / Time clarithromycin [From Biaxin] Allergy Rash/Hives Verified 04/10/23 13:48 Penicillins Allergy Rash/Hives Verified 04/10/23 13:48 Physical Exam Vitals: Vital Signs Temp Pulse Pulse Resp BP BP Pulse Ox 04/11/23 07:00 98.3 F 85 16 117/68 95 04/11/23 02:23 98.2 F 77 16 132/74 97 04/10/23 22:04 98.7 F 99 15 135/70 94 L 04/10/23 18:00 98.7 F 69 16 141/86 97 04/10/23 10:09 98.6 F 106 H 20 172/97 99 Intake and Output 04/10/23 04/11/23 04/11/23 22:59 06:59 14:59 Other: # Voids 0 2 Weight 74.843 kg Results 04/10/23 10:50 04/10/23 10:50 Cardiac Enzymes 04/10/23 04/10/23 04/10/23 Range/Units 10:50 10:50 18:37 AST 21 (14-36) U/L Troponin I <0.012 0.024 (0.000-0.034) ng/mL 04/10/23 Range/Units 20:39 AST (14-36) U/L Troponin I 0.023 (0.000-0.034) ng/mL CBC 04/10/23 Range/Units 10:50 WBC 21.9 H (3.8-10.6) k/uL RBC 4.83 (3.80-5.40) m/uL Hgb 15.4 (11.4-16.0) gm/dL Hct 45.2 (34.0-46.0) % Plt Count 376 (150-450) k/uL Comprehensive Metabolic Panel 04/10/23 Range/Units 10:50 Sodium 138 (137-145) mmol/L Potassium 3.9 (3.5-5.1) mmol/L Chloride 98 (98-107) mmol/L Carbon Dioxide 30 (22-30) mmol/L BUN 15 (7-17) mg/dL Creatinine 0.82 (0.52-1.04) mg/dL Glucose 130 H (74-99) mg/dL Calcium 10.0 (8.4-10.2) mg/dL AST 21 (14-36) U/L ALT 15 (4-34) U/L Alkaline Phosphatase 104 (38-126) U/L Total Protein 7.4 (6.3-8.2) g/dL Albumin 4.5 (3.5-5.0) g/dL Current Medications Generic Name Dose Route Start Last Admin Trade Name Freq PRN Reason Stop Dose Admin Acetaminophen 650 mg 04/10/23 17:42 Acetaminophen Tab 325 Mg Tab PO Q6HR PRN Mild Pain or Fever > 100.5 Albuterol Sulfate 2.5 mg 04/11/23 00:28 Albuterol Nebulized 2.5 Mg/3 Ml INHALATION RT-Q6H PRN Shortness Of Breath Aspirin 81 mg 04/11/23 09:00 Aspirin 81 Mg PO DAILY [facility] Atorvastatin Calcium 40 mg 04/11/23 21:00 Atorvastatin 40 Mg Tab PO HS [facility] Budesonide/Formoterol Fumarate 2 puff 04/11/23 08:00 Symbicort 80-4.5 Mcg Inhaler INHALATION RT-BID [facility] Duloxetine HCl 30 mg 04/11/23 09:00 04/11/23 08:05 Duloxetine Hcl 30 Mg Capsule. PO 30 mg DAILY MILLIE Administration Duloxetine HCl 60 mg 04/11/23 09:00 04/11/23 08:05 Duloxetine Hcl 60 Mg Capsule. PO 60 mg DAILY MILLIE Administration Hydromorphone HCl 0.5 mg 04/10/23 17:42 04/11/23 02:31 Hydromorphone 0.5 Mg/0.5 Ml Syringe IVP 0.5 mg Q3HR PRN Administration Moderate Pain (Scale 4 to 6) Hydromorphone HCl 1 mg 04/10/23 17:42 04/11/23 05:20 Hydromorphone 1 Mg/Ml 1 Ml Syringe IVP 1 mg Q3HR PRN Administration Severe Pain (Scale 7 to 10) Sodium Chloride 1,000 mls @ 75 mls/hr 04/10/23 17:45 04/11/23 05:17 Saline 0.9% IV Not Given .[id number] MILLIE Levothyroxine Sodium 25 mcg 04/11/23 06:30 04/11/23 05:16 Levothyroxine 25 Mcg Tab PO 25 mcg DAILY@0630 MILLIE Administration Loratadine 10 mg 04/11/23 09:00 04/11/23 08:05 Loratadine 10 Mg Tab PO 10 mg DAILY MILLIE Administration Metoprolol Tartrate 25 mg 04/10/23 21:00 04/10/23 20:27 Metoprolol Tartrate 25 Mg Tab PO 25 mg BID MILLIE Administration Naloxone HCl 0.2 mg 04/10/23 17:42 Naloxone 0.4 Mg/Ml 1 Ml Vial IV Q2M PRN Opioid Reversal Ondansetron HCl 4 mg 04/10/23 17:42 Ondansetron 4 Mg/2 Ml Vial IVP Q8HR PRN Nausea And Vomiting Intake and Output 04/10/23 04/11/23 04/11/23 22:59 06:59 14:59 Other: # Voids 0 2 Weight 74.843 kg 04/10/23 10:50 04/10/23 10:50
[2023-04-11] MEDS ORDERED: MAG HYDROX/AL HYDROX/SIMETH 30 ML, HYOSCYAMINE ELIXIR 10 ML, LIDOCAINE VISCOUS 10 ML PO ONE ×3 (11:15)
--- NOTE | 2023-04-11 14:37 | P.GSCN ---
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 She has a past medical history significant for a bicuspid aortic valve, osteoporosis, chronic constipation, depression, anxiety, arthritis, asthma, COPD, fibromyalgia, hypothyroid, hypertension, hyperlipidemia, hyperglycemia, migraine headaches, chronic ongoing tobacco dependence and daily marijuana use smoking about 6-7 joints per day. She presented to the emergency department yesterday with complaints of right sided flank and epigastric pain radiating to her chest which was constant in nature and waxing and waning in severity. The patient also reports that her pain was associated with nausea and 2 episodes of nonbloody emesis yesterday. The patient reports that the pain started yesterday morning, it is not constant and waxes and wanes. She does have a history also of constipation, however she states she had a bowel movement yesterday. She denies any burning with urination, urgency or pressure with urination. She denies any recent fever, shortness of breath, chest pain at this time, dizziness or lower abdominal pain. She states most of her pain is in the epigastric area radiates somewhat into her chest. Otherwise she has flank pain on the right side. Admitting labs with WBC of 21.9 hemoglobin 15 platelet count 376,000 sodium 138 potassium 139 ni ghtly 15 creatinine 0.8. Urinalysis light red cloudy, 2+ protein moderate amount of blood small leukocyte esterase Review of Systems A 14 point review systems was completed all pertinent positives and negatives as stated in the HPI. Past Medical History Past Medical History: Asthma, Coronary Artery Disease (CAD), COPD, Fibromyalgia, Hyperlipidemia, Hypertension, Thyroid Disorder Additional Past Medical History / Comment(s): Osteoporosis, Fibromyaglia, according to the patient she has been diagnosed with a bicuspid aortic valve, History of Any Multi-Drug Resistant Organisms: None Reported Past Surgical History: Appendectomy, Hysterectomy Additional Past Surgical History / Comment(s): Cyst removed recently from her back and neck Past Anesthesia/Blood Transfusion Reactions: No Reported Reaction Past Psychological History: Anxiety, Depression Smoking Status: Current every day smoker Past Alcohol Use History: None Reported Past Drug Use History: Marijuana - Past Family History Mother Family Medical History: Cancer, CVA/TIA Father Family Medical History: Hypertension, Myocardial Infarction ([place]) Additional Family Medical History / Comment(s): at age 46 from myocardial infarction Medications and Allergies Home Medications Medication Instructions Recorded Confirmed Type Albuterol Sulfate [Albuterol 1 - 2 puff PO RT-Q6H PRN 04/10/23 04/10/23 History Sulfate Hfa] Cetirizine HCl [Zyrtec] 10 mg PO DAILY 04/10/23 04/10/23 History Cholecalciferol [Vitamin D3 (125 125 mcg PO DAILY 04/10/23 04/10/23 History Mcg = 5000 Iu)] DULoxetine HCL [Cymbalta] 30 mg PO DAILY 04/10/23 04/10/23 History DULoxetine HCL [Cymbalta] 60 mg PO DAILY 04/10/23 04/10/23 History Ferrous Sulfate [Iron] 325 mg PO DAILY 04/10/23 04/10/23 History Fluticasone Nasal [place] [Flonase 2 spray EA NOSTRIL DAILY 04/10/23 04/10/23 History Nasal [place]] Levothyroxine Sodium [Synthroid] 25 mcg PO DAILY 04/10/23 04/10/23 History Mometasone/Formoterol [Dulera 100 2 puff INHALATION RT-BID 04/10/23 04/10/23 History Mcg-5 Mcg Inhaler] Allergies Allergy/AdvReac Type Severity Reaction Status Date / Time clarithromycin [From Biaxin] Allergy Rash/Hives Verified 04/10/23 13:48 Penicillins Allergy Rash/Hives Verified 04/10/23 13:48 Surgical - Exam Vital Signs Temp Pulse Resp BP Pulse Ox 98.6 F 106 H 20 172/97 99 04/10/23 10:09 04/10/23 10:09 04/10/23 10:09 04/10/23 10:09 04/10/23 10:09 General appearance: The patient is alert, oriented, appears in no acute distress. HET: Head is normocephalic and atraumatic. Pupils are equal and reactive. Neck: Supple. Heart: Regular. Lungs: Equal expansion, normal respiratory effort. Abdomen: Soft, epigastric tenderness, nondistended. Right flank tenderness to palpation. Extremities: Normal skin color and turgor. Palpable bilateral +2 femoral and DP pulses. Neurological: No focal deficits. Strength and sensation are grossly intact. Results - Labs 04/10/23 10:50 04/10/23 10:50 - Imaging Comments: CT abdomen and pelvis without contrast reported some eccentric calcification within the lumen of the fusiform prominence of the abdominal aorta suggesting underlying dissection. Fusiform prominence measures 3.0 cm in the mid abdominal aorta. Correlate with the patient's symptoms. No renal or ureteral stones evident. CT angiogram thoracic/abdomen pelvis aorta reports ascending thoracic aortic aneurysm at 4.0 cm. Descending thoracic aorta and abdominal aorta with apparent thrombus along the wall without obstruction. No acute dissection identified. Mid abdominal dissection, at present is thrombosed. Assessment and Plan Assessment: 1. Epigastric pain 2. Right-sided Flank pain 3. Descending thoracic aorta and abdominal aorta with apparent thrombus along well without obstruction with no acute dissection identified. 4. Ascending thoracic aortic aneurysm measuring 4.0 cm 5. Tobacco abuse, 2 packs per day 6. Marijuana use daily 7. History of bicuspid aortic valve 8. History of hypertension and hyperlipidemia Plan: CT abdomen and pelvis as well as CT angiogram thoracic abdominal pelvis aorta reviewed with and reviewed by Dr. Bowden. There is no indication for any vascular surgical intervention. Continue to maintain optimal blood pressures. Discussed with patient importance of marijuana and tobacco cessation. Also discussed with the primary medicine recommend general surgery evaluation for epigastric/flank pain. Continue medical management. Thank you for this consultation, we will sign off at this time. The impression and plan of care has been dictated as directed. I performed a history and examination of this patient, discussed the same with the dictator. I agree with the dictator's note ,documented as a scribe. Any additional findings or plans will be noted.
[2023-04-11 15:46] LABS: Chol/HDL Ratio 3.19 Ratio; LDL Cholesterol,Calculated 103.6 mg/dL (0.0-131.0)
[2023-04-11] MEDS: SUCRALFATE 1 GM TAB PO SCH ×2 (17:49→20:26)
--- NOTE | 2023-04-11 19:00 | US ---
EXAMINATION TYPE: US gallbladder DATE OF EXAM: 04/11/2023 COMPARISON: 04/10/2023 CLINICAL INDICATION: Female, 57 years old with history of epigastric pain; Chest pain TECHNIQUE: Multiple sonographic images of the right upper quadrant are obtained. FINDINGS: EXAM MEASUREMENTS: Liver Length: 13.9 cm Gallbladder Wall: 0.2 cm CBD: 0.4 cm Right Kidney: 9.3 x 4.6 x 5.1 cm Pancreas: Tail obscured by overlying bowel gas Liver: Scanned through ribs due to bowel gas. Two echogenic nonvascular lesions seen adjacent to GB in right lobe = 0.6 x 0.9 x 0.7 cm and 0.6 x 1.1 x 0.9 cm Gallbladder: wnl Evidence for sonographic Aguiar's sign: neg CBD: limited visualization due to bowel gas Right Kidney: No prominent hydronephrosis or masses seen IMPRESSION: 1. No evidence for acute process. 2. Fatty infiltration adjacent to the gallbladder fossa.
--- NOTE | 2023-04-11 19:44 | P.PN ---
Subjective Progress Note Date: 04/11/23 Hospital course: Patient is a very pleasant 57-year-old female with a past medical history of COPD, CAD, hypertension, hyperlipidemia, hypothyroidism, fibromyalgia, anxiety, depression, nicotine dependence, daily cannabis use, and gastric ulcer. She presented to the emergency department on 04/10/23 with a chief complaint of abdominal pain. Patient reporting epigastric pain radiating directly into her back. Patient reports pain as sharp and constant. She underwent full evaluation in the emergency department. Patient underwent computed tomography scan of thoracic aorta/abdomen/pelvis and radiology report stating. See form abdominal aortic aneurysm measuring 3 cm in mid abdominal aorta along with some eccentric calcification within the lumen of diffuse deformed prominence of abdominal aorta suggesting underlying dissection or previous dissection that thrombosed along with a 4 cm ascending thoracic aortic aneurysm. EKG completed showing normal sinus rhythm at 93 bpm with no significant T-wave or ST abnormalities showing no signs of acute ischemia. Labs completed showing significant leukocytosis with WBC count of 21.9. BMP unremarkable. Liver profile unremarkable. Troponin less than 0.012. Lipid profile unremarkable. Amylase and lipase normal findings. Urinalysis contaminated specimen but negative for infection. Patient was evaluated by cardiothoracic surgery and stated no surgical intervention warranted at this time recommending strict blood pressure control and repeat CTA of the aorta in 3 months. Troponins were trended less than 0.012, 0.024, and 0.023. Patient continued to report intermittent right lower flank pain along with severe epigastric pain radiating into her back. She was evaluated by vascular surgery, also recommending no surgical intervention warranted at this time. Order placed consult to Gen. surgery for evaluation as patient does report and previous known gastric ulcer and order placed for gallbladder ultrasound and HIDA scan. Physical exam: Vital signs reviewed and stable. General: Nontoxic, no distress and appears stated age. Derm: Skin warm and dry, normal coloration for ethnicity. Head: Atraumatic, normocephalic and symmetric. Eyes: EOMs intact, no lid lag, and anicteric sclera Mouth: no lip lesions, mucus membranes moist Cardiovascular: regular rate and rhythm with normal S1S2, systolic murmur, positive posterior tibial pulses bilaterally, and cap refill < 2 seconds. Lungs: Respirations even, regular, and unlabored on room air. Lungs CTA bilaterally, no rhonchi, no rales, no wheezing, and no accessory muscle usage. Abdominal: Tenderness reported to epigastric region, no guarding, no appreciable organomegaly Ext: ROM intact. No gross muscle atrophy, no edema, no contractures Neuro: Speech clear, face symmetrical and CN II-XII grossly intact with no noted focal neuro deficits Psych: Alert and oriented to person, place, time, and situation. Appropriate and pleasant affect. Assessment and Plan of Care: Epigastric/abdominal pain Ascending thoracic aortic aneurysm Mid abdominal aortic aneurysm Leukocytosis COPD CAD Hypertension Hyperlipidemia Hypothyroidism Fibromyalgia Anxiety and depression Nicotine dependence -Patient underwent computed tomography scan of thoracic aorta/abdomen/pelvis and radiology report stating. See form abdominal aortic aneurysm measuring 3 cm in mid abdominal aorta along with some eccentric calcification within the lumen of diffuse deformed prominence of abdominal aorta suggesting underlying dissection or previous dissection that thrombosed along with a 4 cm ascending thoracic aortic aneurysm. -EKG completed showing normal sinus rhythm at 93 bpm with no significant T-wave or ST abnormalities showing no signs of acute ischemia. -Labs completed showing significant leukocytosis with WBC count of 21.9. BMP unremarkable. Liver profile unremarkable. Troponin less than 0.012. Lipid profile unremarkable. Amylase and lipase normal findings. -Urinalysis contaminated specimen but negative for infection. -Patient was evaluated by cardiothoracic surgery and stated no surgical intervention warranted at this time recommending strict blood pressure control and repeat CTA of the aorta in 3 months. -Troponins were trended less than 0.012, 0.024, and 0.023. -Patient was evaluated by cardiology and order was placed for echocardiogram. -Patient continued to report intermittent right lower flank pain along with severe epigastric pain radiating into her back. She was evaluated by vascular surgery, also recommending no surgical intervention warranted at this time. -Order placed consult to Gen. surgery for evaluation secondary to persistent pain and patient reports of previously known gastric ulcer and order placed for gallbladder ultrasound and HIDA scan. -Telemetry monitoring. -Strongly recommend smoking cessation. -Vital signs reviewed. Blood pressure 117/68, heart rate 85, respiratory rate 16, temp 98.3F, SpO2 of 95% on room air. CODE STATUS: Full code DVT prophylaxis: Lovenox Discussed with: Patient, RN, cardiothoracic surgery CRAB CATCHER, vascular surgery CRAB CATCHER, and general surgeon Anticipated discharge date: Clinical course to determine Anticipated discharge place: Home Patient was seen independently by Nurse Pracitioner. This document was prepared using [employer] dictation software. Please allow for errors in cut off machine operator, while rare they do occur. Jer Cash CRAB CATCHER rendered care for this patient independently, reviewed the findings and plan as documented in the note above. I did not physically speak with or examine the patient on this date. Objective - Vital Signs Vital signs: Vital Signs Temp 98.3 F 04/11/23 07:00 Pulse 85 04/11/23 07:00 Resp 16 04/11/23 07:00 BP 117/68 04/11/23 07:00 Pulse Ox 95 04/11/23 07:00 FiO2 Intake & Output 04/10/23 04/11/23 04/11/23 18:59 06:59 18:59 Weight 74.843 kg 74.843 kg Other: # Voids 2 - Labs CBC & Chem 7: 04/13/23 05:47 04/13/23 05:47 Labs: Abnormal Lab Results - Last 24 Hours (Table) 04/10/23 04/10/23 04/10/23 Range/Units 10:50 10:50 10:50 WBC 21.9 H (3.8-10.6) k/uL Neutrophils # 18.6 H (1.3-7.7) k/uL Monocytes # 1.2 H (0-1.0) k/uL Glucose 130 H (74-99) mg/dL Urine Appearance Cloudy H (Clear) Urine Protein 2+ H (Negative) Urine Glucose (UA) Trace H (Negative) Urine Ketones Trace H (Negative) Urine Blood Moderate H (Negative) Ur Leukocyte Esterase Small H (Negative) Ur Squamous Epith Cells 14 H (0-4) /hpf Urine Bacteria Rare H (None) /hpf Urine Mucus Many H (None) /hpf
[2023-04-11] MEDS: ENOXAPARIN 40 MG/0.4 ML SYRINGE SQ SCH (20:25)
[2023-04-11] MEDS: ATORVASTATIN 40 MG TAB PO SCH (20:26)
[2023-04-11] MEDS: PANTOPRAZOLE 40 MG/10 ML VIAL IVP SCH (20:26)
[2023-04-12] MEDS: HYDROmorphone 1 MG/ML 1 ML SYRINGE IVP PRN (00:47)
[2023-04-12] MEDS: LEVOTHYROXINE 25 MCG TAB PO SCH (05:35)
[2023-04-12] MEDS: SUCRALFATE 1 GM TAB PO SCH ×4 (05:35→20:26)
[2023-04-12] MEDS: SYMBICORT 80-4.5 MCG INHALER INHALATION SCH ×2 (09:12→19:50)
[2023-04-12] MEDS: ENOXAPARIN 40 MG/0.4 ML SYRINGE SQ SCH (09:24)
[2023-04-12] MEDS: PANTOPRAZOLE 40 MG/10 ML VIAL IVP SCH ×2 (09:24→20:25)
[2023-04-12] MEDS: METOPROLOL TARTRATE 25 MG TAB PO SCH ×2 (09:25→20:26)
[2023-04-12] MEDS: ASPIRIN 81 MG PO SCH (09:25)
[2023-04-12] MEDS: LORATADINE 10 MG TAB PO SCH (09:25)
[2023-04-12] MEDS: DULoxetine HCL 60 MG CAPSULE.DR PO SCH (09:25)
[2023-04-12] MEDS: DULoxetine HCL 30 MG CAPSULE.DR PO SCH (09:25)
[2023-04-12] MEDS: SODIUM CHLORIDE 0.9% 1,000 ML IV SCH ×2 (09:29→22:00)
--- NOTE | 2023-04-12 09:34 | NM ---
EXAMINATION TYPE: NM hepatobiliary w CCK DATE OF EXAM: 04/12/2023 COMPARISON: Gallbladder ultrasound 04/11/2023 CLINICAL INDICATION: Female, 57 years old with history of epigastric pain; TECHNIQUE: After the intravenous administration of 4.5 mCi Tc 99m Mebrofenin hepatobiliary scintigrap hy is performed. Immediate images post injection. FINDINGS: There is satisfactory initial accumulation of tracer by the liver. The gallbladder is visualized wit hin 22 minutes. No cystic duct obstruction. The small bowel activity is noted within 90 minutes. No c ommon bile duct obstruction. At one hour CCK was administered, patient was injected with 1.5 mcg of Kinevac, and gallbladder ejection fraction is calculated at 1 percent. IMPRESSION: 1. No cystic duct obstruction to suggest acute cholecystitis. 2. Biliary dyskinesia with gallbladder ejection fraction of 1%.
--- NOTE | 2023-04-12 09:58 | CA ---
Transthoracic Echo Report Name: Ivana Sharma Age: 57 Gender: F : 1965 Exam Date: 04/11/2023 10:33 Exam Location: [facility] Ht (in): 62 Wt (lb): 165 Ordering Physician: Tricia Richter Attending/Referring Phys: [id number], Rober Pain Management Physician Colton Huston Procedure CPT: Indications: LVF Cardiac Hx: Technical Quality: Fair Contrast 1: Total Dose (mL): Contrast 2: Total Dose (mL): MEASUREMENTS (Male / Female) Normal Values 2D ECHO LV Diastolic Diameter PLAX 3.7 cm 4.2 - 5.9 / 3.9 - 5.3 cm LV Systolic Diameter PLAX 2.5 cm IVS Diastolic Thickness 1.1 cm 0.6 - 1.0 / 0.6 - 0.9 cm LVPW Diastolic Thickness 1.1 cm 0.6 - 1.0 / 0.6 - 0.9 cm LV Relative Wall Thickness 0.6 RV Internal Dim ED PLAX 1.8 cm LVOT Diameter 2.0 cm Aortic Root Diameter 2.5 cm LA Systolic Diameter LX 2.2 cm 3.0 - 4.0 / 2.7 - 3.8 cm LV Diastolic Volume MOD BP 31.1 cm??? 67 - 155 / 56 - 104 cm??? LV Systolic Volume MOD BP 14.3 cm??? - 58 / 19 - 49 cm??? LV Ejection Fraction MOD BP 53.9 % >= 55 % LV Cardiac Index MOD BP 594.3 cm???/min???m??? LV Diastolic Volume MOD 4C 34.4 cm??? LV Systolic Volume MOD 4C 16.5 cm??? LV Ejection Fraction MOD 4C 52.1 % LV Cardiac Index MOD 4C 634.6 cm???/min???m??? LV Diastolic Length 4C 6.4 cm LV Systolic Length 4C 5.3 cm LV Diastolic Volume MOD 2C 25.6 cm??? LV Systolic Volume MOD 2C 12.0 cm??? LV Ejection Fraction MOD 2C 53.0 % LV Cardiac Index MOD 2C 480.9 cm???/min???m??? LV Diastolic Length 2C 5.8 cm LV Systolic Length 2C 5.1 cm LA Volume 24.8 cm??? 18 - 58 / 22 - 52 cm??? DOPPLER AV Peak Velocity 129.7 cm/s AV Peak Gradient 6.7 mmHg AI Peak Velocity 369.8 cm/s AI Peak Gradient 54.7 mmHg AI Pressure Half Time 880.6 ms LVOT Peak Velocity 72.2 cm/s LVOT Peak Gradient 2.1 mmHg AV Area Cont Eq pk 1.7 cm??? MV Peak Velocity 84.8 cm/s MV Peak Gradient 2.9 mmHg MV Mean Velocity 45.2 cm/s MV Mean Gradient 1.0 mmHg MV Velocity Time Integral 34.2 cm Mitral E Point Velocity 75.6 cm/s Mitral A Point Velocity 76.1 cm/s Mitral E to A Ratio 1.0 MV Deceleration Time 244.3 ms MV E' Velocity 6.2 cm/s Mitral E to MV E' Ratio 12.1 TR Peak Velocity 228.1 cm/s TR Peak Gradient 20.8 mmHg Right Ventricular Systolic Press 25.8 mmHg PV Peak Velocity 80.9 cm/s PV Peak Gradient 2.6 mmHg FINDINGS Left Ventricle Normal LV size and wall thickness. Left ventricular ejection fraction is estimated at 55-60%. Normal wall motion normal ejection fraction normal systolic function Right Ventricle Normal right ventricular size. RVSP= 26mmhg. Right Atrium Normal right atrial size. Left Atrium Normal left atrial size. Mitral Valve Structurally normal mitral valve. No evidence for mitral valve prolapse. Aortic Valve Trileaflet aortic valve. Mild to moderate AI. Tricuspid Valve Structurally normal tricuspid valve. Trace TR. Pulmonic Valve Pulmonic valve not well visualized. No pulmonic regurgitation. Pericardium Normal pericardium. Aorta Normal size aortic root . CONCLUSIONS Normal LV size and systolic function. Mild to moderate aortic insufficiency no significant pulmonary hypertension. No pericardial effusion Previewed by: Dr. Fantasma Avila MD (Electronically Signed) Final Date: 12 April 2023 09:57
[2023-04-12 11:50] LABS: Glucose,Whole Blood 105 mg/dL (70-110)
--- NOTE | 2023-04-12 14:15 | P.GSCN ---
History of Present Illness Consult date: 04/12/23 History of present illness: CHIEF COMPLAINT: Abdominal pain HISTORY OF PRESENT ILLNESS: An chest pain this is a 57-year-old female who presented to hospital with complaints of right upper quadrant abdominal pain that radiates into her back 2 days. Patient having nausea and episodes of vomiting. Patient has been evaluated by vascular surgery and cardiothoracic surgery during this admission. Patient has an ascending thoracic aortic aneurysm of 4.0 cm and descending thoracic aortic and abdominal aorta with apparent thrombus along the wall without obstruction and no surgical intervention was recommended pressure surgery or cardiothoracic surgical service. Patient continues to have this right upper quadrant abdominal pain and general surgery consulted for evaluation. Her gallbladder ultrasound showed no acute findings but fatty infiltration of the gallbladder fossa and the HIDA scan had showed biliary dyskinesia with a EF of 1%. Patient is a smoker. Patient seen and examined with Dr. salmeron PAST MEDICAL HISTORY: See below PAST SURGICAL HISTORY: See below MEDICATIONS: See below ALLERGIES: See below SOCIAL HISTORY: No illicit drug use. REVIEW OF SYSTEMS: CONSTITUTIONAL: Denies fever or chills. HEENT: Denies blurred vision, vision changes, or eye pain. Denies hemoptysis CARDIOVASCULAR: Denies chest pain or pressure. RESPIRATORY: No shortness of breath. GASTROINTESTINAL: See HPI for pertinent findings HEMATOLOGIC: Denies bleeding disorders. GENITOURINARY: Denies any blood in urine or increased urinary frequency. SKIN: Denies pruitis. Denies rash. PHYSICAL EXAM: VITAL SIGNS: Reviewed GENERAL: Well-developed in no acute distress. ABDOMEN: Soft. Nondistended. Tenderness to palpation of the right upper quadrant NEUROLOGIC: Alert and oriented. Cranial nerves II through XII grossly intact. LABORATORY DATA: WBC elevated at 21.9 Hgb 15.4 platelets 376 Sodium 138 potassium 3.9 creatinine 0.82 LFTs normal lipase 88 IMAGING: Gallbladder ultrasound no evidence for acute process. Fatty infiltration adjacent to the gallbladder fossa HIDA scan no cystic duct obstruction to suggest acute cholecystitis. Biliary dyskinesia with gallbladder ejection fraction of 1% ASSESSMENT: 1. Right upper quadrant abdominal pain with nausea and vomiting 2. Biliary dyskinesia with EF of 1% noted on HIDA scan PLAN: -Patient scheduled for laparoscopic cholecystectomy tomorrow with Dr. Salmeron -Okay for low-fat diet today -NPO after midnight -Continue supportive care Thank you for this consultation Physician Bench Assembly Inspector note has been reviewed by physician. Signing provider agrees with the documented findings, assessment, and plan of care. Past Medical History Past Medical History: Asthma, Coronary Artery Disease (CAD), COPD, Fibromyalgia, Hyperlipidemia, Hypertension, Thyroid Disorder Additional Past Medical History / Comment(s): Osteoporosis, Fibromyaglia, according to the patient she has been diagnosed with a bicuspid aortic valve, History of Any Multi-Drug Resistant Organisms: None Reported Past Surgical History: Appendectomy, Hysterectomy Additional Past Surgical History / Comment(s): Cyst removed recently from her back and neck Past Anesthesia/Blood Transfusion Reactions: No Reported Reaction Past Psychological History: Anxiety, Depression Smoking Status: Current every day smoker Past Alcohol Use History: None Reported Past Drug Use History: Marijuana - Past Family History Mother Family Medical History: Cancer, CVA/TIA Father Family Medical History: Hypertension, Myocardial Infarction (VT) Additional Family Medical History / Comment(s): at age 46 from myocardial infarction Medications and Allergies Home Medications Medication Instructions Recorded Confirmed Type Albuterol Sulfate [Albuterol 1 - 2 puff PO RT-Q6H PRN 04/10/23 04/10/23 History Sulfate Hfa] Cetirizine HCl [Zyrtec] 10 mg PO DAILY 04/10/23 04/10/23 History Cholecalciferol [Vitamin D3 (125 125 mcg PO DAILY 04/10/23 04/10/23 History Mcg = 5000 Iu)] DULoxetine HCL [Cymbalta] 30 mg PO DAILY 04/10/23 04/10/23 History DULoxetine HCL [Cymbalta] 60 mg PO DAILY 04/10/23 04/10/23 History Ferrous Sulfate [Iron] 325 mg PO DAILY 04/10/23 04/10/23 History Fluticasone Nasal [place] [Flonase 2 spray EA NOSTRIL DAILY 04/10/23 04/10/23 History Nasal [place]] Levothyroxine Sodium [Synthroid] 25 mcg PO DAILY 04/10/23 04/10/23 History Mometasone/Formoterol [Dulera 100 2 puff INHALATION RT-BID 04/10/23 04/10/23 History Mcg-5 Mcg Inhaler] Allergies Allergy/AdvReac Type Severity Reaction Status Date / Time clarithromycin [From Biaxin] Allergy Rash/Hives Verified 04/10/23 13:48 Penicillins Allergy Rash/Hives Verified 04/10/23 13:48 Surgical - Exam Vital Signs Temp Pulse Resp BP Pulse Ox 98.6 F 106 H 20 172/97 99 04/10/23 10:09 04/10/23 10:09 04/10/23 10:09 04/10/23 10:09 04/10/23 10:09 Results - Labs 04/10/23 10:50 04/10/23 10:50 Diabetes panel 04/10/23 Range/Units 10:50 Triglycerides 138.00 (0.00-149.00) mg/dL HDL Cholesterol 59.80 (40.00-60.00) mg/dL
[2023-04-12 17:12] LABS: ALT 8 U/L (8-44); AST 18 U/L (13-35); Albumin 3.7 d/dL (3.8-4.9); Albumin/Globulin Ratio 1.85 Ratio (1.60-3.17); Alkaline Phosphatase 83 U/L (41-126); Blood Urea Nitrogen 15.7 mg/dL (9.0-27.0); Calcium 9.1 mg/dL (8.7-10.3); Carbon Dioxide 26.4 mmol/L (21.6-31.8); Chloride 99 mmol/L (96-109); Glucose 98 mg/dL (70-110); Potassium 3.9 mmol/L (3.5-5.5); Sodium 136 mmol/L (135-145); Total Bilirubin 0.6 mg/dL (0.3-1.2); Total Protein 5.7 d/dL (6.2-8.2)
[2023-04-12 17:19] LABS: HCT 38.6 % (37.2-46.3); HGB 12.9 d/dL (12.0-15.0); MCH 31.7 pg (27.0-32.0); MCHC 33.4 d/dL (32.0-37.0); MCV 94.8 FL (80.0-97.0); Mean Platelet Volume 9.4 FL (9.5-12.2); NRBC Per 100 WBC 0 X 10*3/uL (0.00-0.01); Platelet Count 350 X 10*3/uL (140-440); RBC 4.07 X 10*6/uL (4.10-5.20); RDW 12.8 % (11.5-14.5); WBC 10.49 X 10*3/uL (4.50-10.00)
--- NOTE | 2023-04-12 18:07 | P.PN ---
Subjective Progress Note Date: 04/12/23 Hospital course: Patient is a very pleasant 57-year-old female with a past medical history of COPD, CAD, hypertension, hyperlipidemia, hypothyroidism, fibromyalgia, anxiety, depression, nicotine dependence, daily cannabis use, and gastric ulcer. She presented to the emergency department on 04/10/23 with a chief complaint of abdominal pain. Patient reporting epigastric pain radiating directly into her back. Patient reports pain as sharp and constant. She underwent full evaluation in the emergency department. Patient underwent computed tomography scan of thoracic aorta/abdomen/pelvis and radiology report stating. See form abdominal aortic aneurysm measuring 3 cm in mid abdominal aorta along with some eccentric calcification within the lumen of diffuse deformed prominence of abdominal aorta suggesting underlying dissection or previous dissection that thrombosed along with a 4 cm ascending thoracic aortic aneurysm. EKG completed showing normal sinus rhythm at 93 bpm with no significant T-wave or ST abnormalities showing no signs of acute ischemia. Labs completed showing significant leukocytosis with WBC count of 21.9. BMP unremarkable. Liver profile unremarkable. Troponin less than 0.012. Lipid profile unremarkable. Amylase and lipase normal findings. Urinalysis contaminated specimen but negative for infection. Patient was evaluated by cardiothoracic surgery and stated no surgical intervention warranted at this time recommending strict blood pressure control and repeat CTA of the aorta in 3 months. Troponins were trended less than 0.012, 0.024, and 0.023. Patient continued to report intermittent right lower flank pain along with severe epigastric pain radiating into her back. She was evaluated by vascular surgery, also recommending no surgical intervention warranted at this time. Order placed consult to Gen. surgery for evaluation as patient does report and previous known gastric ulcer and order placed for gallbladder ultrasound and HIDA scan. Gallbladder ultrasound completed negative for acute intra-abdominal process showing fatty infiltration adjacent to gallbladder fossa. Patient then underwent HIDA scan showing no cystic duct obstruction to suggest acute cholecystitis however biliary dyskinesia with gallbladder ejection fraction of 1%. Echocardiogram completed and reviewed showing normal EF of 55-60% and mild to moderate aortic insufficiency. Patient scheduled to undergo laparoscopic cholecystectomy to deanne with Dr. Mallory. Physical exam: Vital signs reviewed and stable. General: Nontoxic, no distress and appears stated age. Derm: Skin warm and dry, normal coloration for ethnicity. Head: Atraumatic, normocephalic and symmetric. Eyes: EOMs intact, no lid lag, and anicteric sclera Mouth: no lip lesions, mucus membranes moist Cardiovascular: regular rate and rhythm with normal S1S2, systolic murmur, positive posterior tibial pulses bilaterally, and cap refill < 2 seconds. Lungs: Respirations even, regular, and unlabored on room air. Lungs CTA bilaterally, no rhonchi, no rales, no wheezing, and no accessory muscle usage. Abdominal: Tenderness reported to epigastric region and right flank, no guarding, no appreciable organomegaly Ext: ROM intact. No gross muscle atrophy, no edema, no contractures Neuro: Speech clear, face symmetrical and CN II-XII grossly intact with no noted focal neuro deficits Psych: Alert and oriented to person, place, time, and situation. Appropriate and pleasant affect. Assessment and Plan of Care: Intractable Epigastric and right upper quadrant abdominal pain, HIDA scan revealing biliary dyskinesia Ascending thoracic aortic aneurysm Mid abdominal aortic aneurysm Leukocytosis, improving -Gallbladder ultrasound completed negative for acute intra-abdominal process showing fatty infiltration adjacent to gallbladder fossa. -Patient then underwent HIDA scan showing no cystic duct obstruction to suggest acute cholecystitis however biliary dyskinesia with gallbladder ejection fraction of 1%. -Gen. surgery following, discussed plan of care with Gen. surgery PA and patient is scheduled for laparoscopic cholecystectomy tomorrow morning with Dr. Mallory -Labs completed and reviewed showing significant improvement of previous noted leukocytosis of 21.9 down to 10.49 this morning. CBC and CMP otherwise unremarkable. Ascending thoracic aortic aneurysm Mid abdominal aortic aneurysm Leukocytosis, improving COPD CAD Hypertension Hyperlipidemia Nicotine dependence -Patient was evaluated by cardiothoracic surgery and stated no surgical intervention warranted at this time recommending strict blood pressure control and repeat CTA of the aorta in 3 months. -Patient was evaluated by cardiology and cleared from cardiac perspective for discharge and outpatient follow-up with their office -Echocardiogram completed and reviewed showing normal EF of 55-60% and mild to moderate aortic insufficiency.. -Patient was also evaluated by vascular surgery recommending outpatient follow-up in their office for close monitoring of mid abdominal aortic aneurysm and no surgical intervention warranted at this time. -Strongly recommend smoking cessation. Hypothyroidism Continue daily medication regimen with levothyroxine 25 g daily. Fibromyalgia Anxiety and depression Continue daily medication regimen with Cymbalta 90 mg daily Data review: -Labs completed and reviewed showing significant improvement of previous noted leukocytosis of 21.9 down to 10.49 this morning. CBC and CMP otherwise unremarkable. Troponins were trended less than 0.012, 0.024, 0.023, and less than 0.012. -Vital signs reviewed. Blood pressure 123/62, heart rate 80, respiratory rate 14, temp 97.9F, SpO2 of 91% on room air. Imaging reviewed: -Gallbladder ultrasound completed negative for acute intra-abdominal process showing fatty infiltration adjacent to gallbladder fossa. -Patient then underwent HIDA scan showing no cystic duct obstruction to suggest acute cholecystitis however biliary dyskinesia with gallbladder ejection fraction of 1%. -Echocardiogram completed and reviewed showing normal EF of 55-60% and mild to moderate aortic insufficiency. CODE STATUS: Full code DVT prophylaxis: Lovenox Discussed with: Patient, RN, and general surgery PA Anticipated discharge date: Clinical course to determine Anticipated discharge place: Home Patient was seen independently by Nurse Pracitioner. This document was prepared using [employer] dictation software. Please allow for errors in shared services and outsourcing manager, while rare they do occur. Jer Cash NP rendered care for this patient independently, reviewed the findings and plan as documented in the note above. I did not physically speak with or examine the patient on this date. Objective - Vital Signs Vital signs: Vital Signs Temp 97.7 F 04/12/23 01:20 Pulse 77 04/12/23 01:20 Resp 17 04/12/23 01:20 BP 110/73 04/12/23 01:20 Pulse Ox 94 L 04/12/23 01:20 FiO2 Intake & Output 04/11/23 04/12/23 04/12/23 18:59 06:59 18:59 Output Total 1 Balance -1 Output: Stool 1 Other: # Voids 3 - Labs CBC & Chem 7: 04/13/23 05:47 04/13/23 05:47
[2023-04-12] MEDS: ATORVASTATIN 40 MG TAB PO SCH (20:28)
[2023-04-13 06:29] LABS: African American GFR (CKD) 80 (>60 ml/min/1.73 sqM); Anion Gap 6 mmol/L; Blood Urea Nitrogen 14 mg/dL (7-17); Calcium 8.4 mg/dL (8.4-10.2); Carbon Dioxide 27 mmol/L (22-30); Chloride 104 mmol/L (98-107); Glucose 86 mg/dL (74-99); Non-African American GFR(CKD) 70 (>60 ml/min/1.73 sqM); Potassium 3.6 mmol/L (3.5-5.1); Sodium 137 mmol/L (137-145)
[2023-04-13 06:30] LABS: Basophils % (A) 0 %; Eosinophils # (A) 0.1 k/uL (0-0.7); Eosinophils % (A) 1 %; HCT 36.1 % (34.0-46.0); HGB 12.5 gm/dL (11.4-16.0); Lymphocytes # (A) 2.3 k/uL (1.0-4.8); Lymphocytes % (A) 32 %; MCH 32.8 pg (25.0-35.0); MCHC 34.8 g/dL (31.0-37.0); MCV 94.2 fL (80.0-100.0); Mean Platelet Volume 7.3; Monocytes # (A) 0.4 k/uL (0-1.0); Monocytes % (A) 5 %; Neutrophils # (A) 4.3 k/uL (1.3-7.7); Neutrophils % (A) 60 %; Platelet Count 310 k/uL (150-450); RBC 3.83 m/uL (3.80-5.40); RDW 12.7 % (11.5-15.5); WBC 7.2 k/uL (3.8-10.6)
[2023-04-13] MEDS: LEVOTHYROXINE 25 MCG TAB PO SCH (06:34)
[2023-04-13] MEDS: SUCRALFATE 1 GM TAB PO SCH ×4 (06:34→20:50)
[2023-04-13] MEDS: SYMBICORT 80-4.5 MCG INHALER INHALATION SCH ×2 (07:56→21:26)
[2023-04-13] MEDS: ENOXAPARIN 40 MG/0.4 ML SYRINGE SQ SCH (07:58)
[2023-04-13] MEDS: ASPIRIN 81 MG PO SCH (07:58)
[2023-04-13] MEDS: HYDROmorphone 1 MG/ML 1 ML SYRINGE IVP PRN ×2 (08:53→21:21)
[2023-04-13] MEDS: PANTOPRAZOLE 40 MG/10 ML VIAL IVP SCH ×2 (08:53→20:50)
[2023-04-13] MEDS: DULoxetine HCL 30 MG CAPSULE.DR PO SCH (08:54)
[2023-04-13] MEDS: LORATADINE 10 MG TAB PO SCH (08:54)
[2023-04-13] MEDS: DULoxetine HCL 60 MG CAPSULE.DR PO SCH (08:54)
[2023-04-13] MEDS: METOPROLOL TARTRATE 25 MG TAB PO SCH ×2 (08:54→20:50)
--- NOTE | 2023-04-13 10:44 | P.PN ---
Subjective Progress Note Date: 04/13/23 CHIEF COMPLAINT: Right upper quadrant abdominal pain HISTORY OF PRESENT ILLNESS: Patient continues to complain of right upper quadrant abdominal pain. Vitals stable. WBC 7.2 Hgb 12.5 platelets 310 sodium 137 potassium 3.6 creatinine 0.91 PHYSICAL EXAM: VITAL SIGNS: Reviewed. GENERAL: Well-developed in no acute distress. ABDOMEN: Soft. Nondistended. Right upper quadrant tenderness with palpation NEUROLOGIC: Alert and oriented. Cranial nerves II through XII grossly intact. ASSESSMENT: 1. Right upper quadrant abdominal pain with nausea and vomiting 2. Biliary dyskinesia with EF of 1% noted on HIDA scan PLAN: -Patient scheduled for laparoscopic cholecystectomy today Physician C Application Developer note has been reviewed by physician. Signing provider agrees with the documented findings, assessment, and plan of care. Objective - Vital Signs Vital signs: Vital Signs Temp 98 F 04/13/23 07:33 Pulse 64 04/13/23 07:33 Resp 18 04/13/23 07:33 BP 145/84 04/13/23 07:33 Pulse Ox 98 04/13/23 07:33 FiO2 Intake & Output 04/12/23 04/13/23 04/13/23 18:59 06:59 18:59 Intake Total 360 Balance 360 Intake: Oral 360 Other: Voiding Method Toilet Toilet # Voids 1 1 1 # Bowel Movements 0 - Labs CBC & Chem 7: 04/13/23 05:47 04/13/23 05:47 Labs: Abnormal Lab Results - Last 24 Hours (Table) 04/12/23 04/12/23 Range/Units 10:44 10:44 WBC 10.49 H (4.50-10.00) X 10*3/uL RBC 4.07 L (4.10-5.20) X 10*6/uL MPV 9.4 L (9.5-12.2) FL Total Protein 5.7 L (6.2-8.2) d/dL Albumin 3.7 L (3.8-4.9) d/dL
[2023-04-13] MEDS ORDERED: IV FLUID CONTINUATION 1,000 ML IV ONE ×2 (11:10)
[2023-04-13] MEDS ORDERED: LACTATED RINGERS 1,000 ML IV ONE ×2 (11:15)
[2023-04-13] MEDS ORDERED: BUPIVACAINE (PF) 0.25% 10 ML VIAL SQ ONE ×2 (11:38→11:52)
[2023-04-13] MEDS ORDERED: HEPARIN SODIUM,PORCINE/PF 5,000 UNIT/0.5 ML SYRINGE SQ ONE (11:45)
[2023-04-13] MEDS ORDERED: GLYCOPYRROLATE 0.2 MG/ML 2 ML VIAL ONE (11:48)
[2023-04-13] MEDS ORDERED: SUCCINYLCHOLINE CHLORIDE 200 MG/10 ML VIAL IV ONE (11:48)
[2023-04-13] MEDS ORDERED: MIDAZOLAM 2 MG/2 ML VIAL ONE (11:48)
[2023-04-13] MEDS ORDERED: fentaNYL (PF) 50 MCG/ML 2 ML AMP ONE (11:48)
[2023-04-13] MEDS ORDERED: PROPOFOL 10 MG/ML 20 ML VIAL IV ONE (11:48)
[2023-04-13] MEDS ORDERED: ROCURONIUM 10 MG/ML (5 ML VIAL) IV ONE (11:48)
[2023-04-13] MEDS ORDERED: LABETALOL 5 MG/ML VIAL MDV ONE (11:48)
[2023-04-13] MEDS ORDERED: NEOSTIGMINE 1 MG/ML 10 ML VIAL ONE (11:48)
[2023-04-13] MEDS ORDERED: PHENYLEPHRINE-0.9% NACL SYG 1,000 MCG/10 ML SYRINGE ONE (11:48)
[2023-04-13] MEDS ORDERED: ONDANSETRON 4 MG/2 ML VIAL IVP ONE (11:49)
[2023-04-13] MEDS ORDERED: HEPARIN SODIUM,PORCINE 5,000 UNIT/ML 1 ML VIAL SQ ONE (11:50)
[2023-04-13] MEDS ORDERED: ceFAZolin 1,000 MG VIAL IVPB ONE (12:10)
--- NOTE | 2023-04-13 12:34 | P.OP ---
Date of Procedure: 04/13/23 Preoperative Diagnosis: Cholecystitis Postoperative Diagnosis: Cholecystitis Procedure(s) Performed: Laparoscopic cholecystectomy Anesthesia: EMILIO Surgeon: Kenny Mallory Estimated Blood Loss (ml): 5 Pathology: other (Gallbladder) Condition: stable Disposition: PACU Description of Procedure: The patient was placed on the operating table. The patient received a general endotracheal tube anesthesia. The patients abdomen was prepped and draped in the usual sterile fashion. Through an infraumbilical stab incision, the fascia of the anterior abdominal wall was grasped with a pair of Kochers and then the Veress needle was placed in the peritoneal cavity. Position of the Veress needle was confirmed with positive drop test. The abdomen was then insufflated. After adequate insufflation, the 10 mm trocar was placed in the peritoneal cavity. Following this the laparoscope was placed in the peritoneal cavity. The patient was placed in the head-up, right side up position and then a 5 mm trocar was placed in the right lateral and right subcostal position under direct visualization. A 8 mm trocar was placed in the epigastric position. The gallbladder was grasped in the fundus and infundibulum. Traction on the gallbladder was placed in the lateral and the cephalad positions. The triangle of Calot was visualized.. The cystic duct was bluntly dissected until the union of the cystic duct and common bile duct was seen. A critical view of safety was achieved. The cystic duct was then divided and sealed with the Harmonic scissors. A PDS Endoloop was then placed throughout the cystic duct stump. The cystic artery divided and sealed with the Harmonic scissors. The gallbladder was then removed from the liver bed using Harmonic scissors. The gallbladder was then extracted through the epigastric port site. Operative field was checked for any bleeding spots and Harmonic scissors was used to coagulate the liver bed. The abdomen was irrigated. The trocars were removed. The skin was closed using interrupted 3-0 Vicryl suture. Dermabond dressing were applied. The patient tolerated the procedure well.
[2023-04-13] MEDS: SODIUM CHLORIDE 0.9% 1,000 ML IV SCH (12:40)
--- NOTE | 2023-04-13 15:42 | P.PN ---
Subjective Progress Note Date: 04/13/23 Hospital course: Patient is a very pleasant 57-year-old female with a past medical history of COPD, CAD, hypertension, hyperlipidemia, hypothyroidism, fibromyalgia, anxiety, depression, nicotine dependence, daily cannabis use, and gastric ulcer. She presented to the emergency department on 04/10/23 with a chief complaint of abdominal pain. Patient reporting epigastric pain radiating directly into her back. Patient reports pain as sharp and constant. She underwent full evaluation in the emergency department. Patient underwent computed tomography scan of thoracic aorta/abdomen/pelvis and radiology report stating. See form abdominal aortic aneurysm measuring 3 cm in mid abdominal aorta along with some eccentric calcification within the lumen of diffuse deformed prominence of abdominal aorta suggesting underlying dissection or previous dissection that thrombosed along with a 4 cm ascending thoracic aortic aneurysm. EKG completed showing normal sinus rhythm at 93 bpm with no significant T-wave or ST abnormalities showing no signs of acute ischemia. Labs completed showing significant leukocytosis with WBC count of 21.9. BMP unremarkable. Liver profile unremarkable. Troponin less than 0.012. Lipid profile unremarkable. Amylase and lipase normal findings. Urinalysis contaminated specimen but negative for infection. Patient was evaluated by cardiothoracic surgery and stated no surgical intervention warranted at this time recommending strict blood pressure control and repeat CTA of the aorta in 3 months. Troponins were trended less than 0.012, 0.024, and 0.023. Patient continued to report intermittent right lower flank pain along with severe epigastric pain radiating into her back. She was evaluated by vascular surgery, also recommending no surgical intervention warranted at this time. Order placed consult to Gen. surgery for evaluation as patient does report and previous known gastric ulcer and order placed for gallbladder ultrasound and HIDA scan. Gallbladder ultrasound completed negative for acute intra-abdominal process showing fatty infiltration adjacent to gallbladder fossa. Patient then underwent HIDA scan showing no cystic duct obstruction to suggest acute cholecystitis however biliary dyskinesia with gallbladder ejection fraction of 1%. Echocardiogram completed and reviewed showing normal EF of 55-60% and mild to moderate aortic insufficiency. Patient underwent laparoscopic cholecystectomy today with Dr. Mallory. Physical exam: Patient seen and fully evaluated at bedside upon return from laparoscopic cholecystectomy. Patient remains "whoozy" and states she does not feel quite like herself. She is currently sipping on clear liquids with ice water only at that time. She reports mild nausea but denies any vomiting and reports postoperative pain is controlled. Vital signs reviewed and stable. General: Nontoxic, no distress and appears stated age. Derm: Skin warm and dry, normal coloration for ethnicity. Head: Atraumatic, normocephalic and symmetric. Eyes: EOMs intact, no lid lag, and anicteric sclera Mouth: no lip lesions, mucus membranes moist Cardiovascular: regular rate and rhythm with normal S1S2, systolic murmur, positive posterior tibial pulses bilaterally, and cap refill < 2 seconds. Lungs: Respirations even, regular, and unlabored on room air. Lungs CTA bilaterally, no rhonchi, no rales, no wheezing, and no accessory muscle usage. Abdominal: Tenderness reported to epigastric region and right flank, no guarding, no appreciable organomegaly Ext: ROM intact. No gross muscle atrophy, no edema, no contractures Neuro: Speech clear, face symmetrical and CN II-XII grossly intact with no noted focal neuro deficits Psych: Alert and oriented to person, place, time, and situation. Appropriate and pleasant affect. Assessment and Plan of Care: Intractable Epigastric and right upper quadrant abdominal pain, HIDA scan revealing biliary dyskinesia. -Gen. surgery following and took patient for laparoscopic cholecystectomy today with Dr. Mallory. -Continue to provide postoperative pain management. Patient updated that plan for discharge tomorrow morning. Ascending thoracic aortic aneurysm Mid abdominal aortic aneurysm Leukocytosis, improving COPD CAD Hypertension Hyperlipidemia Nicotine dependence -Patient was evaluated by cardiothoracic surgery and stated no surgical intervention warranted at this time recommending strict blood pressure control and repeat CTA of the aorta in 3 months. -Patient was evaluated by cardiology and cleared from cardiac perspective for discharge and outpatient follow-up with their office -Patient was also evaluated by vascular surgery recommending outpatient follow-up in their office for close monitoring of mid abdominal aortic aneurysm and no surgical intervention warranted at this time. -Strongly recommend smoking cessation. Leukocytosis, resolved Hypothyroidism Continue daily medication regimen with levothyroxine 25 g daily. Fibromyalgia Anxiety and depression Continue daily medication regimen with Cymbalta 90 mg daily Data review: -Labs completed and reviewed showing resolution of previous he noted leukocyto sis with WBC count of 7.2 and CBC and BMP otherwise unremarkable with no abnormalities. -Vital signs reviewed. Blood pressure 153/79, heart rate 56, respiratory rate 18, temp 98.0F, SpO2 of 95% on room air. Imaging reviewed: -No new imaging available for review. CODE STATUS: Full code DVT prophylaxis: Lovenox Discussed with: Patient, RN, and general surgeon Anticipated discharge date: Tomorrow Anticipated discharge place: Home Patient was seen independently by Nurse Pracitioner. This document was prepared using [employer] dictation software. Please allow for errors in jig inspector, while rare they do occur. Jer Cash SENIOR INSTRUMENTATION ENGINEER rendered care for this patient independently, reviewed the findings and plan as documented in the note above. I did not physically speak with or examine the patient on this date. Objective - Vital Signs Vital signs: Vital Signs Temp 98 F 04/13/23 07:33 Pulse 64 04/13/23 07:33 Resp 18 04/13/23 07:33 BP 145/84 04/13/23 07:33 Pulse Ox 98 04/13/23 07:33 FiO2 Intake & Output 04/12/23 04/13/23 04/13/23 18:59 06:59 18:59 Intake Total 360 Balance 360 Intake: Oral 360 Other: Voiding Method Toilet # Voids 1 1 1 # Bowel Movements 0 - Labs CBC & Chem 7: 04/13/23 05:47 04/13/23 05:47 Labs: Abnormal Lab Results - Last 24 Hours (Table) 04/12/23 04/12/23 Range/Units 10:44 10:44 WBC 10.49 H (4.50-10.00) X 10*3/uL RBC 4.07 L (4.10-5.20) X 10*6/uL MPV 9.4 L (9.5-12.2) FL Total Protein 5.7 L (6.2-8.2) d/dL Albumin 3.7 L (3.8-4.9) d/dL
[2023-04-13] MEDS: ATORVASTATIN 40 MG TAB PO SCH (20:50)
[2023-04-14] MEDS: HYDROmorphone 1 MG/ML 1 ML SYRINGE IVP PRN ×2 (01:02→05:57)
[2023-04-14] MEDS: SODIUM CHLORIDE 0.9% 1,000 ML IV SCH (05:20)
[2023-04-14] MEDS: LEVOTHYROXINE 25 MCG TAB PO SCH (05:53)
[2023-04-14] MEDS: SUCRALFATE 1 GM TAB PO SCH (05:54)
[2023-04-14] MEDS: SYMBICORT 80-4.5 MCG INHALER INHALATION SCH (07:55)
[2023-04-14] MEDS ORDERED: HYDROcodone/APAP 5-325MG 1 EACH TAB PO PRN (07:58)
[2023-04-14 09:38] VITALS: RESP 16; TEMP 97.9
[2023-04-14 09:53] VITALS: BP 102/56; PULSE 102
[2023-04-14] MEDS: DULoxetine HCL 60 MG CAPSULE.DR PO SCH (09:54)
[2023-04-14] MEDS: DULoxetine HCL 30 MG CAPSULE.DR PO SCH (09:54)
[2023-04-14] MEDS: ASPIRIN 81 MG PO SCH (09:54)
[2023-04-14] MEDS: LORATADINE 10 MG TAB PO SCH (09:54)
[2023-04-14] MEDS: ENOXAPARIN 40 MG/0.4 ML SYRINGE SQ SCH (09:54)
[2023-04-14] MEDS: PANTOPRAZOLE 40 MG/10 ML VIAL IVP SCH (09:55)
--- NOTE | 2023-04-14 10:54 | P.PN ---
Subjective Progress Note Date: 04/14/23 CHIEF COMPLAINT: Right upper quadrant abdominal pain HISTORY OF PRESENT ILLNESS: Patient complains of abdominal pain and different from admission.. Reports pain is surgical. She is receiving pain medication. She denies any nausea or vomiting. Denies any flatus. Afebrile. Heart rate 102 BP 102/56 PHYSICAL EXAM: VITAL SIGNS: Reviewed. GENERAL: Well-developed in no acute distress. ABDOMEN: Soft. Nondistended. Incision sites clean dry and intact. Mild tenderness at incision sites NEUROLOGIC: Alert and oriented. Cranial nerves II through XII grossly intact. ASSESSMENT: 1. Cholecystitis status post laparoscopic cholecystectomy 2. Biliary dyskinesia with EF of 1% noted on HIDA scan PLAN: -[place] added for pain control -Continue pain management -Continue regular diet -Encouraged patient ambulate -Discharge per medicine service Physician [place] Consultant note has been reviewed by physician. Signing provider agrees with the documented findings, assessment, and plan of care. Objective - Vital Signs Vital signs: Vital Signs Temp 97.9 F 04/14/23 08:00 Pulse 102 H 04/14/23 09:52 Resp 16 04/14/23 08:00 BP 102/56 04/14/23 09:52 Pulse Ox 92 L 04/14/23 08:00 FiO2 Intake & Output 04/13/23 04/14/23 04/14/23 18:59 06:59 18:59 Intake Total 670 90 Output Total 5 Balance 665 90 Intake: IV 550 Oral 120 90 Output: Estimated Blood Loss 5 Other: Voiding Method Toilet Toilet # Voids 0 1 1 # Bowel Movements 0 - Labs CBC & Chem 7: 04/13/23 05:47 04/13/23 05:47
[2023-04-14] MEDS: METOPROLOL TARTRATE 25 MG TAB PO SCH (11:33)
--- NOTE | 2023-04-14 11:33 | P.DS ---
Providers Date of admission: 04/12/23 17:52 Expected date of discharge: 04/14/23 Attending physician: Jay Jay Vicente MD Consults: 04/10/23 17:42 Consult Physician Urgent Consulting Provider: [facility] Consult Reason/Comments: Abdominal/Chest pain Do you want consulting provider notified?: Yes 04/11/23 13:56 Consult Physician Urgent Consulting Provider: Irving Walker Consult Reason/Comments: concerns of underlying aortic disection, thrombosed Do you want consulting provider notified?: Yes 04/11/23 16:20 Consult Physician Routine Consulting Provider: Kenny Mallory Consult Reason/Comments: persistant epigastric pain, hx of ulcer Do you want consulting provider notified?: Yes Primary care physician: Stated None Hospital Course: Discharge Diagnosis: Intractable Epigastric and right upper quadrant abdominal pain, HIDA scan revealing biliary dyskinesia. Patient was started on Protonix 40 mg daily and underwent laparoscopic cholecystectomy on 04/13/[address] Mallory. Patient to follow up outpatient with her office on 04/20/23 at 3:45 PM. Ascending thoracic aortic aneurysm. Patient was evaluated by cardiothoracic surgery and stated no surgical intervention warranted at this time recommending patient continue with strict blood pressure control and follow up in their office for scheduling of repeat CTA of the aorta in 3 months. Mid abdominal aortic aneurysm Leukocytosis, resolved COPD with continued nicotine dependence, strongly urged patient on the importance of smoking cessation and risks associated with continued use up to and including . CAD. Patient was evaluated by supervisor electronic coils and Echocardiogram completed and reviewed showing normal EF of 55-60% and mild to moderate aortic insufficiency. Patient started on aspirin 81 mg daily, atorvastatin 40 mg nightly, and metoprolol 25 mg twice daily. Cardiology recommending outpatient follow-up with their office in 1-2 weeks. Hypertension. Patient educated on the importance of maintaining tight control of her blood pressures and was started on metoprolol 25 mg twice daily. Hyperlipidemia. Patient started on atorvastatin 40 mg nightly. Nicotine dependence. Strongly recommended smoking cessation. Leukocytosis, resolved Hypothyroidism, Continue daily medication regimen with levothyroxine 25 g daily. Fibromyalgia and Anxiety with depression. Continue daily medication regimen with Cymbalta 90 mg daily Hospital Course: Patient is a very pleasant 57-year-old female with a past medical history of COPD, CAD, hypertension, hyperlipidemia, hypothyroidism, fibromyalgia, anxiety, depression, nicotine dependence, daily cannabis use, and gastric ulcer. She presented to the emergency department on 04/10/23 with a chief complaint of abdominal pain. Patient reporting epigastric pain radiating directly into her back. Patient reports pain as sharp and constant. She underwent full evaluation in the emergency department. Patient underwent computed tomography scan of thoracic aorta/abdomen/pelvis and radiology report stating. See form abdominal aortic aneurysm measuring 3 cm in mid abdominal aorta along with some eccentric calcification within the lumen of diffuse deformed prominence of abdominal aorta suggesting underlying dissection or previous dissection that thrombosed along with a 4 cm ascending thoracic aortic aneurysm. EKG completed showing normal sinus rhythm at 93 bpm with no significant T-wave or ST abnormalities showing no signs of acute ischemia. Labs completed showing significant leukocytosis with WBC count of 21.9. BMP unremarkable. Liver profile unremarkable. Troponin less than 0.012. Lipid profile unremarkable. Amylase and lipase normal findings. Urinalysis contaminated specimen but negative for infection. Patient was evaluated by cardiothoracic surgery and stated no surgical intervention warranted at this time recommending strict blood pressure control and repeat CTA of the aorta in 3 months. Troponins were trended less than 0.012, 0.024, and 0.023. Patient continued to report intermittent right lower flank pain along with severe epigastric pain radiating into her back. She was evaluated by vascular surgery, also recommending no surgical intervention warranted at this time. Order placed consult to Gen. surgery for evaluation as patient does report and previous known gastric ulcer and order placed for gallbladder ultrasound and HIDA scan. Gallbladder ultrasound completed negative for acute intra-abdominal process showing fatty infiltration adjacent to gallbladder fossa. Patient then underwent HIDA scan showing no cystic duct obstruction to suggest acute cholecystitis however biliary dyskinesia with gallbladder ejection fraction of 1%. Echocardiogram completed and reviewed showing normal EF of 55-60% and mild to moderate aortic insufficiency. Patient underwent laparoscopic cholecystectomy 04/13/[address] Mallory. Medically, patient is stable at this time. Patient strongly educated on the importance of smoking cessation and risks associated with continued use. Patient discharged home with prescriptions for aspirin 81 mg daily, atorvastatin 40 mg daily, metoprolol 25 mg twice daily, Protonix 40 mg daily, and oxycodone 5 mg every 6 hours as needed for pain. It is understandable patient was in [place] but states she is contemplating moving to [place]. Patient provided with a list of doctors for follow-up if she decides to remain in [place] with her family, but patient was strongly educated on the importance that she must follow-up with the PCP, supervisor electronic coils, cardiothoracic surgeon, and vascular surgeon if she returns to [place]. Patient verbalizes understanding and was provided with written documentation on discharge papers explaining all of this again in writing. Physical exam: Vital signs reviewed and stable. General: Nontoxic, no distress and appears stated age. Derm: Skin warm and dry, normal coloration for ethnicity. Head: Atraumatic, normocephalic and symmetric. Eyes: EOMs intact, no lid lag, and anicteric sclera Mouth: no lip lesions, mucus membranes moist Cardiovascular: regular rate and rhythm with normal S1S2, systolic murmur, positive posterior tibial pulses bilaterally, and cap refill < 2 seconds. Lungs: Respirations even, regular, and unlabored on room air. Lungs CTA bilaterally, no rhonchi, no rales, no wheezing, and no accessory muscle usage. Abdominal: Abdomen is soft and nondistended. Laparoscopic incisions intact with no surrounding erythema or drainage. Ext: ROM intact. No gross muscle atrophy, no edema, no contractures Neuro: Speech clear, face symmetrical and CN II-XII grossly intact with no noted focal neuro deficits Psych: Alert and oriented to person, place, time, and situation. Appropriate and pleasant affect. A total of 45 minutes of time were spent preparing this complex discharge summary. Pt was discharged on 04/14/23 11:23 AM Patient was seen independently by Nurse Practitioner. This document was prepared using [employer] dictation software. Please allow for errors in medical lab technologist while rare they do occur. Jer Cash NP rendered care for this patient independently, reviewed the findings and plan as documented in the note above. I did not physically speak with or examine the patient on this date. Patient Condition at Discharge: Stable Plan - Discharge Summary New Discharge Prescriptions: New oxyCODONE HCL [OxyIR] 5 mg PO Q6H PRN 3 Days #12 tab PRN Reason: Pain Acetaminophen Tab [Tylenol] 1,000 mg PO Q6HR PRN #30 tablet PRN Reason: Pain Aspirin 81 mg PO DAILY 30 Days #30 tab Atorvastatin [Lipitor] 40 mg PO HS 30 Days #30 tab Metoprolol Tartrate [Lopressor] 25 mg PO BID 30 Days #30 tab Pantoprazole [Protonix] 40 mg PO DAILY 30 Days #30 tab Continue Mometasone/Formoterol [Dulera 100 Mcg-5 Mcg Inhaler] 2 puff INHALATION RT-BID DULoxetine HCL [Cymbalta] 60 mg PO DAILY Cetirizine HCl [Zyrtec] 10 mg PO DAILY Levothyroxine Sodium [Synthroid] 25 mcg PO DAILY Fluticasone Nasal [place] [Flonase Nasal [place]] 2 spray EA NOSTRIL DAILY Ferrous Sulfate [Iron] 325 mg PO DAILY DULoxetine HCL [Cymbalta] 30 mg PO DAILY Cholecalciferol [Vitamin D3 (125 Mcg = 5000 Iu)] 125 mcg PO DAILY Albuterol Sulfate [Albuterol Sulfate Hfa] 1 - 2 puff PO RT-Q6H PRN PRN Reason: Shortness Of Breath Discharge Medication List Albuterol Sulfate [Albuterol Sulfate Hfa] 1 - 2 puff PO RT-Q6H PRN 04/10/23 [History] Cetirizine HCl [Zyrtec] 10 mg PO DAILY 04/10/23 [History] Cholecalciferol [Vitamin D3 (125 Mcg = 5000 Iu)] 125 mcg PO DAILY 04/10/23 [History] DULoxetine HCL [Cymbalta] 30 mg PO DAILY 04/10/23 [History] DULoxetine HCL [Cymbalta] 60 mg PO DAILY 04/10/23 [History] Ferrous Sulfate [Iron] 325 mg PO DAILY 04/10/23 [History] Fluticasone Nasal [place] [Flonase Nasal [place]] 2 spray EA NOSTRIL DAILY 04/10/23 [History] Levothyroxine Sodium [Synthroid] 25 mcg PO DAILY 04/10/23 [History] Mometasone/Formoterol [Dulera 100 Mcg-5 Mcg Inhaler] 2 puff INHALATION RT-BID 04/10/23 [History] Acetaminophen Tab [Tylenol] 1,000 mg PO Q6HR PRN #30 tablet 04/14/23 [Rx] Aspirin 81 mg PO DAILY 30 Days #30 tab 04/14/23 [Rx] Atorvastatin [Lipitor] 40 mg PO HS 30 Days #30 tab 04/14/23 [Rx] Metoprolol Tartrate [Lopressor] 25 mg PO BID 30 Days #30 tab 04/14/23 [Rx] Pantoprazole [Protonix] 40 mg PO DAILY 30 Days #30 tab 04/14/23 [Rx] oxyCODONE HCL [OxyIR] 5 mg PO Q6H PRN 3 Days #12 tab 04/14/23 [Rx] Follow up Appointment(s)/Referral(s): Fantasma Avila MD [STAFF PHYSICIAN] - 1 Week ([facility] will call patient with appointment date and time.) Darien Roca MD [STAFF PHYSICIAN] - 1-2 Days (Need to establish care with a PCP if you are staying in this area. ) Steff Santizo DO [STAFF PHYSICIAN] - 1 Week (Follow up for mid-abdominal aortic aneurysm. Please call office at [phone] to schedule appointment.) Bennie Hou MD [STAFF PHYSICIAN] - 4 Weeks (follow up for Ascending thoracic aortic aneurysm Office will call patient with appointment date and time) Kenny Mallory MD [STAFF PHYSICIAN] - 04/20/23 3:45 pm Patient Instructions/Handouts: *Surgery [facility] - Laparoscopic Cholecystectomy Discharge Instructions, Nonruptured Abdominal Aortic Aneurysm (DC), Thoracic Aortic Aneurysm (DC), Hypertension (DC) Activity/Diet/Wound Care/Special Instructions: Activity: As tolerated. Take breaks as needed. Diet: Heart healthy and carb consistent diet. Avoid salts, or foods with hidden salts such as canned or boxed foods and frozen dinners. Extra salt makes your heart work harder and traps the fluid in your body for longer. Special Instructions: Take all of your medications as directed and remember to keep all of your doctor's appointments and follow-up as needed. Strongly recommend stopping smoking. I understand that you live in [place] but are contemplating staying in this area to follow up with supervisor electronic coils, vascular surgeon, and cardiothoracic surgeon. If used in this area, it is of utmost importance that you establish care with a primary care provider, recommend Dr. Roca. If you do not stay in this area with family and decided to return back to [place], it is of utmost importance that you follow-up with her primary doctor as well as a vascular surgeon for long- term monitoring and management of your abdominal aortic aneurysm, a cardiothoracic surgeon for long-term monitoring and management of your ascending thoracic aortic aneurysm, and a supervisor electronic coils for close monitoring and control of your blood pressures. Thank you for allowing us to participate in your care, it was truly a pleasure having you for our patient!!! Discharge Disposition: HOME SELF-CARE
== END 2023-04-14 13:16 | disposition home or self-care (01) | DRG 263 ==
LOC: EC 09:55 → 6NMEDSUR 17:35 → OBSVTOIN 04-12 17:52
PROVIDERS: ADMIT Family Medicine; ATTEND Family Medicine
PROC: 0FT44ZZ Resection of Gallbladder, Percutaneous Endoscopic Approach (ICD-10-PCS; principal; 2023-04-13 11:30)
DX: K81.9 Cholecystitis, unspecified (principal); I71.21 Aneurysm of the ascending aorta, without rupture; I71.40 Abdominal aortic aneurysm, without rupture, unspecified; I25.10 Atherosclerotic heart disease of native coronary artery without angina pectoris; J44.9 Chronic obstructive pulmonary disease, unspecified; I71.20 Thoracic aortic aneurysm, without rupture, unspecified; E78.5 Hyperlipidemia, unspecified; F17.210 Nicotine dependence, cigarettes, uncomplicated; F32.A Depression, unspecified; F41.9 Anxiety disorder, unspecified; I10 Essential (primary) hypertension; E03.9 Hypothyroidism, unspecified; F12.90 Cannabis use, unspecified, uncomplicated; K59.09 Other constipation; M79.7 Fibromyalgia; M81.0 Age-related osteoporosis without current pathological fracture; Z71.6 Tobacco abuse counseling; Q23.1 Congenital insufficiency of aortic valve; Z79.82 Long term (current) use of aspirin; Z79.890 Hormone replacement therapy; Z79.899 Other long term (current) drug therapy; Z82.49 Family history of ischemic heart disease and other diseases of the circulatory system; Z87.11 Personal history of peptic ulcer disease
CPT/HCPCS: 36415; 71275; 74174; 74176; 76705; 78227; 80048; 80053; 80061; 81001; 82150; 83690; 83735; 84484; 85025; 85027; 88304; 93005; 93306; 94640; 94760; 96361; 96374; 96375; 99285